=== PATIENT | female | born 1950 | race Caucasian/White ===

== ENCOUNTER 2016-12-21 08:30 | Outpatient (CLI) | payer OTHER ==
[2016-12-21 14:47] LABS: HEMOGLOBIN A1C 1.16 g/dL
== END 2016-12-21 08:31 | disposition home or self-care (01) ==
LOC: LAB 08:30
PROVIDERS: ATTEND Physician Assistant Medical
DX: E11.9 Type 2 diabetes mellitus without complications (principal); Z79.899 Other long term (current) drug therapy
CPT/HCPCS: 82947; 83036

== ENCOUNTER 2017-05-07 08:00 | Outpatient (CLI) | payer OTHER ==
[2017-05-07 14:47] LABS: HB2 TOTAL 15.6 g/dL; HEMOGLOBIN A1C 0.97 g/dL; HEMOGLOBIN A1C % 7.8 % (4.6-6.2)
== END 2017-05-07 08:01 | disposition home or self-care (01) ==
LOC: LAB.R 08:00
PROVIDERS: ATTEND Physician Assistant Medical
DX: E11.9 Type 2 diabetes mellitus without complications (principal); Z79.899 Other long term (current) drug therapy
CPT/HCPCS: 82947; 83036

== ENCOUNTER 2017-08-01 08:00 | Outpatient (CLI) | payer MEDICARE, OTHER ==
[2017-08-01 13:37] LABS: BASOPHILS # (AUTO) 0.1 10^3/uL (0.0-0.1); BASOPHILS % (AUTO) 1.2 %; EOSINOPHILS # (AUTO) 0.2 10^3/uL (0.0-0.7); EOSINOPHILS % (AUTO) 5.3 %; HGB - HEMOGLOBIN 14.2 g/dL (12.0-16.0); LYMPHOCYTES # (AUTO) 1.9 10^3/uL (1.5-3.5); LYMPHOCYTES % (AUTO) 39.9 %; MEAN CORPUSCULAR HEMOGLOBIN 29.4 pg (27.0-31.0); MEAN CORPUSCULAR HGB CONC 33.5 g/dL (32.0-36.0); MEAN CORPUSCULAR VOLUME 87.6 fL (81.0-99.0); MEAN PLATELET VOLUME 9.2 fL (7.9-10.8); MONOCYTES # (AUTO) 0.7 10^3/uL (0.0-1.0); MONOCYTES % (AUTO) 14.4 %; NEUTROPHILS # (AUTO) 1.9 10^3/uL (1.5-6.6); NEUTROPHILS % (AUTO) 39.2 %; PLT - PLATELET COUNT 288 10^3/uL (130-450); RED BLOOD COUNT 4.83 10^6/uL (4.20-5.40); RED CELL DISTRIBUTION WIDTH 12.6 % (12.0-15.0); WHITE BLOOD COUNT 4.7 x10^3/uL (4.8-10.8)
[2017-08-01 13:57] LABS: HB2 TOTAL 15.4 g/dL; HEMOGLOBIN A1C 0.85 g/dL; HEMOGLOBIN A1C % 7.2 % (4.6-6.2)
[2017-08-01 13:58] LABS: ALBUMIN 3.5 g/dL (3.2-5.5); ALKALINE PHOSPHATASE 51 IU/L (42-121); ALT ALANINE AMINOTRANSFERASE 11 IU/L (10-60); AST ASPARTATE AMINOTRANSFERASE 13 IU/L (10-42); BILIRUBIN,TOTAL 0.5 mg/dL (0.2-1.0); BUN - BLOOD UREA NITROGEN 24 mg/dL (6-20); CALCIUM 9.4 mg/dL (8.5-10.3); CARBON DIOXIDE - CO2 27 mmol/L (21-32); CHLORIDE 100 mmol/L (101-111); CHOL/HDL RATIO 4.5 (<4.4); CHOLESTEROL 222 mg/dL; GFR - MDRD 56 (>89); GLUCOSE 141 mg/dL (70-100); HDL CHOLESTEROL 49 mg/dL; LDL CHOLESTEROL,CALCULATED 143 mg/dL; LDL/HDL RATIO 2.9 (<4.4); SODIUM 135 mmol/L (135-145); VLDL CHOLESTEROL 30 mg/dL
== END 2017-08-01 08:01 | disposition home or self-care (01) ==
LOC: LAB.R 08:00
PROVIDERS: ATTEND Physician Assistant Medical
DX: E55.9 Vitamin D deficiency, unspecified (principal); I10 Essential (primary) hypertension; E11.9 Type 2 diabetes mellitus without complications; E78.2 Mixed hyperlipidemia; Z79.899 Other long term (current) drug therapy
CPT/HCPCS: 80053; 80061; 82306; 83036; 83721; 84443; 85025

== ENCOUNTER 2018-01-02 14:08 | Emergency (ER) | payer MEDICARE ==
[2018-01-02] MEDS ORDERED: NITROGLYCERIN SL 0.4 MG TABLET SL STA (14:25)
[2018-01-02] MEDS ORDERED: ASPIRIN CHEW 81 MG TABLET PO STA (14:25)
[2018-01-02] MEDS ORDERED: HEPARIN 25000UNITS/500ML (D5W) 25,000 UNIT/500 ML BAG IV STA (14:25)
[2018-01-02] MEDS ORDERED: METOPROLOL 5 MG/5 ML VIAL IVP STA (14:26)
[2018-01-02 14:34] LABS: BASOPHILS # (AUTO) 0.1 10^3/uL (0.0-0.1); EOSINOPHILS % (AUTO) 0.6 %; HGB - HEMOGLOBIN 14.6 g/dL (12.0-16.0); LYMPHOCYTES # (AUTO) 1.9 10^3/uL (1.5-3.5); LYMPHOCYTES % (AUTO) 25.7 %; MEAN CORPUSCULAR HEMOGLOBIN 30.3 pg (27.0-31.0); MEAN CORPUSCULAR HGB CONC 34.5 g/dL (32.0-36.0); MEAN CORPUSCULAR VOLUME 87.9 fL (81.0-99.0); MONOCYTES # (AUTO) 1.4 10^3/uL (0.0-1.0); MONOCYTES % (AUTO) 18.4 %; NEUTROPHILS % (AUTO) 54.3 %; PLT - PLATELET COUNT 334 10^3/uL (130-450); RED BLOOD COUNT 4.81 10^6/uL (4.20-5.40); RED CELL DISTRIBUTION WIDTH 12.4 % (12.0-15.0); WHITE BLOOD COUNT 7.4 x10^3/uL (4.8-10.8)
--- NOTE | 2018-01-02 14:37 | ED Physician Documentation ---
History of Present Illness - Stated complaint Stated Complaint: CHEST PX - Chief complaint Chief Complaint: Cardiac - Additonal information Additional information: hx from pt 67 f pmhx HTN HLD DM to ED with chest pain since 10 pm last night right sided rad to right shoulder + soa + NV - diaphoresis no leg swelling or travel no known CAD Review of Systems Constitutional: denies: Fever, Chills, Sweats Cardiac: reports: Chest pain / pressure Respiratory: reports: Dyspnea. denies: Cough GI: reports: Nausea, Vomiting. 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: Tubal ligation HEENT: Tonsil/Adenoidectomy - Present Medications Home Medications: Ambulatory Orders Medication Instructions Recorded Confirmed Aspirin [Aspir 81] 81 mg PO DAILY 05/13/14 05/07/15 Cholecalciferol (Vitamin D3) 5,000 unit PO DAILY 05/13/14 05/07/15 [Vitamin D3] Metformin HCl 1,000 mg PO BIDWM 05/13/14 05/07/15 Glyburide 5 mg PO BIDWM 05/07/15 05/07/15 - Allergies Allergies/Adverse Reactions: Allergies Allergy/AdvReac Type Severity Reaction Status Date / Time JAN Inhibitors AdvReac cough Verified 05/13/14 08:59 - Social History Smoking Status: Former smoker PD ED PE NORMAL - Vitals Vital signs reviewed: Yes - General General: Alert and oriented X 3 - HEENT HEENT: Atraumatic - Neck Neck: Supple, no meningeal sign - Cardiac Cardiac: RRR - Respiratory Respiratory: No respiratory distress, Clear bilaterally - Abdomen Abdomen: Soft, Non tender - Derm Derm: Normal color - Extremities Extremities: No edema, No calf tenderness / cord - Neuro Neuro: Alert and oriented X 3 Results - Vitals Vitals: Vital Signs - 24 hr 01/02/18 01/02/18 14:15 14:39 Temperature 36.0 C L Heart Rate 98 85 Respiratory 15 24 Rate Blood Pressure 158/117 H 164/102 H O2 Saturation 95 97 Oxygen O2 Source Nasal cannula - EKG (time done) 1416 Rate: Rate (enter#) (97) Rhythm: NSR [place]: Normal Ischemia: ST elevation c/w ischemia (V2-V5, slight ET elev inf as well), Q waves (inf and ant) - Labs Labs: Laboratory Tests 01/02/18 01/02/18 01/02/18 14:28 14:28 14:28 WBC 7.4 RBC 4.81 Hgb 14.6 Hct 42.3 MCV 87.9 MCH 30.3 MCHC 34.5 RDW 12.4 Plt Count 334 MPV 9.0 Neut # (Auto) 4.0 Lymph # (Auto) 1.9 [place] # (Auto) 1.4 H Eos # (Auto) 0.0 Baso # (Auto) 0.1 Absolute Nucleated RBC 0.00 Nucleated RBC % 0.0 Sodium 135 Potassium 4.3 Chloride 98 L Carbon Dioxide 28 Anion Gap 9.0 BUN 20 Creatinine 1.0 Estimated GFR (MDRD) 55 L Glucose 235 H Calcium 9.4 Total Bilirubin 0.7 AST 118 H ALT 30 Alkaline Phosphatase 61 Troponin I 40.92 H* Total Protein 7.6 Albumin 3.6 Globulin 4.0 Albumin/Globulin Ratio 0.9 L Lipase 29 - Rads (name of study) CXR Radiology: EMP read indepedently (read off portable machine - airtic knob appears tight no cap or effusion, no pneumo or infiltrate) PD MEDICAL DECISION MAKING - ED course ED course: STEMI anteriro, perhaps inferior as well already with Q waves though but with ongoing ischemic sx gave asa heparin nitro BB stat transfer to [facility] per protocol explained all to pt and - Critical Care Time(min): 30 Time Includes: Direct patient care, Review records, Reassess patient, Document care, Coordinate care, Medical consult, Family consult for tx dec Data interpretation: See progress note - Sepsis Event Vital Signs: Vital Signs - 24 hr 01/02/18 01/02/18 14:15 14:39 Temperature 36.0 C L Heart Rate 98 85 Respiratory 15 24 Rate Blood Pressure 158/117 H 164/102 H O2 Saturation 95 97 Oxygen O2 Source Nasal cannula Departure - Departure Disposition: 02 Transfer Acute Care Hosp Clinical Impression: STEMI (ST elevation myocardial infarction) Discharge Date/Time: 01/02/18 14:45
[2018-01-02 14:40] VITALS: BP 164/102
[2018-01-02 14:52] LABS: ALBUMIN 3.6 g/dL (3.2-5.5); ALBUMIN/GLOBULIN RATIO 0.9 (1.0-2.2); BILIRUBIN,TOTAL 0.7 mg/dL (0.2-1.0); CALCIUM 9.4 mg/dL (8.5-10.3); TOTAL PROTEIN 7.6 g/dL (6.7-8.2)
--- NOTE | 2018-01-02 15:06 | XRAY Report ---
Reason: chest pain Procedure Date: 01/02/2018 Accession Number: [id number] / [id number] Procedure: XR - Chest 1 View X-Ray CPT Code: 71353 FULL RESULT: EXAM: CHEST RADIOGRAPHY EXAM DATE: 01/02/2018 02:40 PM. CLINICAL HISTORY: Chest pain. COMPARISON: CHEST 2 VIEW PA/LAT 06/03/2013 9:54 AM. TECHNIQUE: 1 view. FINDINGS: Lungs/Pleura: Lung volumes appear reduced with elevation of the right hemidiaphragm. No consolidative process or edema. Negative for pneumothorax. Mediastinum: Heart size within normal limits. Trachea midline. Other: None. IMPRESSION: Lower lung volumes. Otherwise unremarkable. RADIA
== END 2018-01-02 14:45 | disposition short-term general hospital (02) ==
LOC: ED 14:08
DX: I21.09 ST elevation (STEMI) myocardial infarction involving other coronary artery of anterior wall (principal); I10 Essential (primary) hypertension; E11.9 Type 2 diabetes mellitus without complications; Z79.82 Long term (current) use of aspirin; Z87.891 Personal history of nicotine dependence; Z79.84 Long term (current) use of oral hypoglycemic drugs
CPT/HCPCS: 36415; 71045; 80053; 83690; 84484; 85025; 93005; 96374; 96375; 96376; 99284; 99291; A9270

== ENCOUNTER 2018-01-02 14:51 | Outpatient (CLI) | payer MEDICARE | END 2018-01-02 14:52 | disposition short-term general hospital (02) | LOC: EMS 14:51 | PROVIDERS: ATTEND Surgery | DX: R07.9 Chest pain, unspecified (principal) | CPT/HCPCS: A0425; A0427 ==

== ENCOUNTER 2018-01-14 11:41 | Outpatient (CLI) | payer MEDICARE ==
[2018-01-14 12:08] LABS: BASOPHILS # (AUTO) 0.1 10^3/uL (0.0-0.1); BASOPHILS % (AUTO) 1.4 %; EOSINOPHILS # (AUTO) 0.2 10^3/uL (0.0-0.7); EOSINOPHILS % (AUTO) 3.9 %; HGB - HEMOGLOBIN 11.6 g/dL (12.0-16.0); LYMPHOCYTES # (AUTO) 1.4 10^3/uL (1.5-3.5); LYMPHOCYTES % (AUTO) 26.3 %; MEAN CORPUSCULAR HEMOGLOBIN 30.5 pg (27.0-31.0); MEAN CORPUSCULAR HGB CONC 34.2 g/dL (32.0-36.0); MEAN CORPUSCULAR VOLUME 89.3 fL (81.0-99.0); MEAN PLATELET VOLUME 8.6 fL (7.9-10.8); MONOCYTES # (AUTO) 0.9 10^3/uL (0.0-1.0); MONOCYTES % (AUTO) 17.5 %; NEUTROPHILS # (AUTO) 2.7 10^3/uL (1.5-6.6); NEUTROPHILS % (AUTO) 50.9 %; PLT - PLATELET COUNT 368 10^3/uL (130-450); RED BLOOD COUNT 3.79 10^6/uL (4.20-5.40); RED CELL DISTRIBUTION WIDTH 12.7 % (12.0-15.0); WHITE BLOOD COUNT 5.3 x10^3/uL (4.8-10.8)
[2018-01-14 12:25] LABS: ALBUMIN/GLOBULIN RATIO 0.8 (1.0-2.2); BILIRUBIN,TOTAL 0.6 mg/dL (0.2-1.0); TOTAL PROTEIN 6.8 g/dL (6.7-8.2)
[2018-01-14 12:47] LABS: CALCIUM 8.9 mg/dL (8.5-10.3)
== END 2018-01-14 11:42 | disposition home or self-care (01) ==
LOC: LAB 11:41
PROVIDERS: ATTEND Physician Assistant Medical
DX: I25.2 Old myocardial infarction (principal); I10 Essential (primary) hypertension; Z79.899 Other long term (current) drug therapy
CPT/HCPCS: 36415; 80053; 83880; 85025

== ENCOUNTER 2018-01-18 11:35 | Outpatient (CLI) | payer MEDICARE ==
--- NOTE | 2018-01-18 17:31 | XRAY Report ---
Reason: DYSPNEA, HX OF STEMI Procedure Date: 01/18/2018 Accession Number: [id number] / [id number] Procedure: XR - Chest 2 View X-Ray CPT Code: 17205 FULL RESULT: EXAM: CHEST RADIOGRAPHY EXAM DATE: 01/18/2018 11:45 AM. CLINICAL HISTORY: DYSPNEA, HX OF STEMI. COMPARISON: CHEST 1 VIEW 01/02/2018 2:30 PM. TECHNIQUE: 2 views. FINDINGS: Cardiac silhouette partially obscured. Heart size appears normal. Calcified plaques in the thoracic aorta. There is a moderate left pleural effusion. Small right pleural effusion. Mild interstitial edema. No definite pneumothorax. IMPRESSION: Moderate left and small right pleural effusions. No definite consolidation, although evaluation limited by pleural effusions. Mild interstitial edema. RADIA
== END 2018-01-18 11:36 | disposition home or self-care (01) ==
LOC: DI 11:35
PROVIDERS: ATTEND Physician Assistant Medical
DX: J90 Pleural effusion, not elsewhere classified (principal); R06.00 Dyspnea, unspecified; I25.2 Old myocardial infarction
CPT/HCPCS: 71046

== ENCOUNTER 2018-01-18 12:38 | Observation (INO) | payer MEDICARE ==
[2018-01-18 13:51] LABS: BASOPHILS # (AUTO) 0.1 10^3/uL (0.0-0.1); BASOPHILS % (AUTO) 1.3 %; EOSINOPHILS # (AUTO) 0.2 10^3/uL (0.0-0.7); EOSINOPHILS % (AUTO) 3.3 %; LYMPHOCYTES # (AUTO) 1.6 10^3/uL (1.5-3.5); LYMPHOCYTES % (AUTO) 28.4 %; MEAN CORPUSCULAR HGB CONC 33.6 g/dL (32.0-36.0); MEAN CORPUSCULAR VOLUME 89.2 fL (81.0-99.0); MEAN PLATELET VOLUME 9.7 fL (7.9-10.8); MONOCYTES # (AUTO) 0.7 10^3/uL (0.0-1.0); MONOCYTES % (AUTO) 12.3 %; NEUTROPHILS % (AUTO) 54.7 %; PLT - PLATELET COUNT 413 10^3/uL (130-450); RED BLOOD COUNT 4.35 10^6/uL (4.20-5.40); RED CELL DISTRIBUTION WIDTH 13.3 % (12.0-15.0); WHITE BLOOD COUNT 5.5 x10^3/uL (4.8-10.8)
[2018-01-18 13:59] LABS: ALBUMIN 3.2 g/dL (3.2-5.5); ALBUMIN/GLOBULIN RATIO 0.8 (1.0-2.2); BILIRUBIN,TOTAL 0.2 mg/dL (0.2-1.0); CALCIUM 9.4 mg/dL (8.5-10.3); CREATININE 1.2 mg/dL (0.4-1.0)
[2018-01-18 14:37] LABS: INR 3.9 (0.8-1.2); PT - PROTHROMBIN TIME 41.4 secs (9.9-12.6)
--- NOTE | 2018-01-18 17:05 | ED Physician Documentation ---
PD HPI DYSPNEA - Stated complaint Stated Complaint: CHF - Chief complaint Chief Complaint: Cardiac - History obtained from History obtained from: Patient - History of Present Illness Timing - onset: How many days ago (9) Timing - onset during: Exertion Timing - duration: Days (9) Timing - details: Gradual onset, Still present Pain level max: 0 Pain level now: 0 Inciting event(s): No: URI, Immobilization/travel Worsened by: Exertion, Laying flat Associated symptoms: Cough, Chest pain / discomfort, Bilateral edema. No: Fever, Hemoptysis, Palpitations, Diaphoresis Similar symptoms before: Has not had sx before Recently seen: Not recently seen - Additional information Additional information: Pt stated since she was discharged from [facility] last January 09 after her heart attack and stent insertion, she had been feeling short of breath with exertion and laying flat. This had progressively gotten worse that she sleeps upright on a reclining chair and with light exertion she feels short of breath. She stated her legs had gotten more swollen. When she's sitting up and resting she does not have shortness of breath nor chest pain. Pt states the hydraulic lift operator put her on coumadin because there's a clot in the apex of her heart. Review of Systems Ten Systems: 10 systems reviewed and negative Constitutional: denies: Fever, Chills, Myalgias, Fatigue Nose: denies: Rhinorrhea / runny nose, Congestion Throat: denies: Sore throat Cardiac: reports: Chest pain / pressure, Pedal edema. denies: Palpitations, Calf pain Respiratory: reports: Dyspnea, Cough. 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: Tubal ligation HEENT: Tonsil/Adenoidectomy - Present Medications Home Medications: Ambulatory Orders Medication Instructions Recorded Confirmed Aspirin [Aspir 81] 81 mg PO DAILY 05/13/14 01/18/18 RX: Metformin HCl 500 mg PO BIDWM 05/13/14 01/18/18 RX: Glyburide 5 mg PO BIDWM 05/07/15 01/18/18 Clopidogrel Bisulfate [Clopidogrel] 75 mg PO DAILY 01/18/18 01/18/18 Pantoprazole Sodium [Protonix] 40 mg PO QDAC 01/18/18 01/18/18 RX: Atorvastatin Calcium 40 mg PO QPM 01/18/18 01/18/18 RX: Betamethasone Valerate 1 applic TOP BID PRN 01/18/18 01/18/18 RX: Colchicine 0.6 mg PO DAILY 01/18/18 01/18/18 RX: Furosemide 20 mg PO DAILY 01/18/18 01/18/18 RX: Losartan Potassium 25 mg PO DAILY 01/18/18 01/18/18 RX: Metoprolol Tartrate 25 mg PO BID 01/18/18 01/18/18 RX: Warfarin Sodium 5 - 10 mg PO DAILY 01/18/18 01/18/18 - Allergies Allergies/Adverse Reactions: Allergies Allergy/AdvReac Type Severity Reaction Status Date / Time JAN Inhibitors AdvReac cough Verified 01/18/18 12:44 - Social History Does the pt smoke?: No Smoking Status: Never smoker Does the pt drink ETOH?: No Does the pt have substance abuse?: No - Immunizations Immunizations are current?: Yes PD ED PE NORMAL - Vitals Vital signs reviewed: Yes - General General: Alert and oriented X 3, No acute distress - HEENT HEENT: Moist mucous membranes - Neck Neck: Supple, no meningeal sign - Cardiac Cardiac: RRR, No murmur, Strong equal pulses - Respiratory Respiratory: No respiratory distress, Other (few scattered rales, mildly decreased breath sounds bilaterally) - Abdomen Abdomen: Normal bowel sounds, Soft, Non tender, Non distended - Derm Derm: Normal color, Warm and dry - Extremities Extremities: No deformity, Normal ROM s pain, Other (1+ pitting edema of BLE). No: No tenderness to palpate - Neuro Neuro: Alert and oriented X 3 - Psych Psych: Normal mood, Normal affect Results - Vitals Vitals: Vital Signs - 24 hr 01/18/18 01/18/18 12:45 12:59 Temperature 36.8 C 36.8 C Heart Rate 100 100 Respiratory 20 18 Rate Blood Pressure 145/82 H 145/82 H O2 Saturation 94 94 Oxygen O2 Source Room air - EKG (time done) 1248 Rate: Rate (enter#) (100) Rhythm: NSR [place]: Normal Intervals: Normal [place] QRS: Normal Ischemia: Non specific changes - Labs Labs: Laboratory Tests 01/18/18 01/18/18 01/18/18 13:00 13:00 13:00 WBC 5.5 RBC 4.35 Hgb 13.0 Hct 38.8 MCV 89.2 MCH 30.0 MCHC 33.6 RDW 13.3 Plt Count 413 MPV 9.7 Neut # (Auto) 3.0 Lymph # (Auto) 1.6 [place] # (Auto) 0.7 Eos # (Auto) 0.2 Baso # (Auto) 0.1 Absolute Nucleated RBC 0.00 Nucleated RBC % 0.1 PT INR Sodium 139 Potassium 4.2 Chloride 99 L Carbon Dioxide 27 Anion Gap 13.0 BUN 24 H Creatinine 1.2 H Estimated GFR (MDRD) 45 L Glucose 208 H Calcium 9.4 Total Bilirubin 0.2 AST 17 ALT 16 Alkaline Phosphatase 83 Troponin I 0.48 B-Natriuretic Peptide Total Protein 7.0 Albumin 3.2 Globulin 3.8 Albumin/Globulin Ratio 0.8 L 01/18/18 01/18/18 01/18/18 13:00 14:13 15:35 WBC RBC Hgb Hct MCV MCH MCHC RDW Plt Count MPV Neut # (Auto) Lymph # (Auto) [place] # (Auto) Eos # (Auto) Baso # (Auto) Absolute Nucleated RBC Nucleated RBC % PT 41.4 H INR 3.9 H Sodium Potassium Chloride Carbon Dioxide Anion Gap BUN Creatinine Estimated GFR (MDRD) Glucose Calcium Total Bilirubin AST ALT Alkaline Phosphatase Troponin I 0.49 B-Natriuretic Peptide 967 H Total Protein Albumin Globulin Albumin/Globulin Ratio PD MEDICAL DECISION MAKING - ED course Complexity details: re-evaluated patient (1513 Pt NAD. Sitting up at bedside. States feels better sitting up than laying down. Denies cp/sob when not moving. Informed of test results and agreed to admission. Also agreed to another troponin as requested by the hospitalist prior to accepting admission. 1701 Case discussed with hospitalist Dr Christopher Jackman including unchanged troponin. Will admit as obs for lasix treatment. Pt updated.), considered differential (CHF, PULMONARY EDEMA, ACS, P.E., PNA), d/w patient, d/w family Departure - Departure Disposition: 66 [facility] DC/Xfer Clinical Impression: Anticoagulated on Coumadin Congestive heart failure Qualifiers: Heart failure type: unspecified Heart failure chronicity: acute Qualified Code(s): I50.9 - Heart failure, unspecified Condition: Fair Discharge Date/Time: 01/18/18 17:25
[2018-01-18] MEDS ORDERED: ACETAMINOPHEN 325 MG TABLET PO PRN (17:27)
[2018-01-18] MEDS ORDERED: MORPHINE 2 MG/ML CARPUJECT IVP PRN (17:27)
[2018-01-18] MEDS ORDERED: PROCHLORPERAZINE 10 MG/2 ML VIAL IVP PRN (17:27)
[2018-01-18] MEDS ORDERED: ZOLPIDEM 5 MG TABLET PO PRN (17:27)
[2018-01-18] MEDS ORDERED: WARFARIN 5 MG TABLET PO SCH (18:00)
[2018-01-18] MEDS: FUROSEMIDE 40 MG/4 ML VIAL IVP SCH (18:23)
--- NOTE | 2018-01-18 20:14 | HISTORY & PHYSICAL EXAMINATION ---
DATE OF SERVICE: 01/18/2018 Physician: Shavon Jones MD HISTORY OF PRESENT ILLNESS: This is a 67-year-old white female with a history of diabetes; on oral agents only, hypertension, and hyperlipidemia. The patient states that she does morning glucoses and they normally run between 80 and 130. Her A1c in the past has been approximately 7.2. The patient presented to our emergency room about a week ago after having 1 full day of indigestion and pain in the right ribcage area that she thought was either indigestion or pain from right rotator cuff physical therapy overuse. She happened to be in the hospital because of her 's outpatient appointment that day, and decided to come to be seen for this. She was found to have a STEMI acute HI, troponin was [address] elevations and she was transferred to [facility]. She had an angiogram there that showed a subtotal occlusion of the LAD, which was stented. The other arteries showed minor disease in the left circumflex and an open RCA. Her LVEF was about 45% and she had an apical wall motion abnormality and an LV apical clot was seen that was 1.1 x 3 cm. She had renal insufficiency while at [facility] with creatinine increasing from 0.8 up to 1.6, then improved to 1.2. She had post-HI pericarditis and was discharged on colchicine. She was just discharged on 01/09/2018 and she has been compliant with all her new medications. She was on Lovenox bridging while Coumadin was being started. She has been getting home health with a visiting nurse. Over the last 3 days, she has developed leg edema and weakness, and severe orthopnea and requiring to sit up in a chair to sleep. She told her doctor about this and was sent for an outpatient chest x-ray this morning. The chest x-ray showed CHF and she was advised to come to the ER. She denies any indigestion-type angina, palpitations, lightheadedness or syncope. She was significantly dyspneic in the ER today, and advised further management with iv diuresis. She is being placed in Observation for this. PAST MEDICAL HISTORY: Diabetes, hypertension, recent anterior HI and hyperlipidemia. FAMILY HISTORY: Her mother had peripheral vascular disease and protein C deficiency, but of congestive heart failure at the age of 60. Father's side had no inherited diseases. She has no children. 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 She is a nonsmoker who quit in the . She drinks very rare beer, once a month, uses no illicit drugs. She is compliant with her medications. Since her HI, she admits that her , who is mostly the cook, does not stick to a low salt and low sugar preparation of food. REVIEW OF SYSTEMS: A comprehensive review of systems was performed and the pertinent positives are in the HPI, the rest are negative. ALLERGIES: JAN INHIBITORS. MEDICATIONS: 1. Colchicine 0.6 mg daily. 2. Baby aspirin daily. 3. Warfarin between 5 and 10 mg daily. 4. Losartan 25 mg daily. 5. Lasix 20 mg daily. 6. Protonix 40 mg daily. 7. Metoprolol tartrate 25 mg b.i.d. 8. Plavix 75 mg daily. 9. Lipitor 40 mg every night. 10. Metformin 500 mg b.i.d. 11. Glyburide 5 mg b.i.d. PHYSICAL EXAMINATION: GENERAL: White female who is in no distress, but she is sitting bolt upright. VITAL SIGNS: Blood pressure 145/82, pulse is 100 in sinus rhythm, afebrile, room air saturation 94%, respiratory rate 20. HEENT: Unremarkable. NECK: Without JVD in a vertical position. No carotid bruits. CHEST: Left basilar crackles up 1/2. The right has crackles only at the base. HEART: Sounds are normal. No audible murmur. Very distant heart sounds. There is no rub. ABDOMEN: Soft, nontender. No organomegaly. EXTREMITIES: Show 3+ edema to the knees. No clubbing or cyanosis. She has very taut skin over the shins. NEUROLOGIC: Intact. LABORATORY DATA: Troponin is 0.48 and a repeat troponin 2 hours later was 0.49, normal electrolytes, BUN is 24, creatinine 1.2, glucose 208. BNP 967. Normal liver tests. INR is 3.9. Normal CBC. Urinalysis was not done. IMAGING DATA: Chest x-ray from earlier, before the ER visit showed CHF/pulmonary edema. DIAGNOSTIC DATA: EKG: Sinus tachycardia at a rate of 100, left atrial and probably right atrial enlargement, low voltage throughout the precordium, QS waves V1 through V6, flat inferior T waves. She had ST elevations in leads V2 through V4 consistent with an aneurysm. There is no old EKG here for comparison. IMPRESSION/DIAGNOSES: 1. Pulmonary edema. 2. 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 3. Left ventricular thrombus. 4. Diabetes mellitus. 5. Elevated INR (excessive). PLAN: Place the patient in Observation on telemetry. Begin IV diuresis, follow her I's and O's, daily weight. Continue with her beta yasmine post-HI, and increase the dose since blood pressure will allow it and it will help the tachycardia and to try to achieve the recommended metoprolol dose for heart failure, which is 200 mg daily total, her dose is too low currently. Change to Succinate, long acting Metoprolol. Continue with her ARB, but watch her creatinine. If needed, she may need transition to the substitute, which would be hydralazine with nitrates. Continue with her statin and check lipid panel. Continue with her Plavix, which is planned for 1 month post drug-eluting stent placement and continue with her aspirin daily lifelong. Continue with Coumadin, but hold a dose now, to maintain INR between 2 and 3. Follow INR daily while here. Check for protein C deficiency, which may give her a hypercoagulable state, as she may have an inherited the deficiency from her mother. Obtain an Echo to reestablish LV and RV contractility and the size of the clot, and for any pericarditis, which is still concerning since she has low voltage on her EKG. Follow her chest x-ray. DVT PROPHYLAXIS: Full dose anticoagulation, which she has already achieved. CODE STATUS: FULL CODE (this was reviewed in detail with the patient today). ATTESTATION: The patient is expected to be discharged or transferred to another facility within 96 hours: Yes. TD: 01/18/2018 19:12 ADIN
[2018-01-18] MEDS: FAMOTIDINE 20 MG TABLET PO SCH (21:29)
[2018-01-18] MEDS: ATORVASTATIN 40 MG TABLET PO SCH (21:29)
[2018-01-18] MEDS: METOPROLOL TARTRATE 25 MG TABLET PO SCH (21:30)
[2018-01-18] MEDS: INSULIN ASPART 300 UNIT/3 ML PEN SUBQ SCH (21:33)
[2018-01-19] MEDS: SODIUM CHLORIDE FLUSH 0.9% 10 ML SYRINGE IVP SCH ×3 (00:22→16:27)
[2018-01-19] MEDS: NYSTATIN POWDER 15 GM TOP SCH ×3 (04:59→20:38)
[2018-01-19 05:18] LABS: CALCIUM 9.2 mg/dL (8.5-10.3)
[2018-01-19 05:21] LABS: PT - PROTHROMBIN TIME 43.3 secs (9.9-12.6)
[2018-01-19 05:26] LABS: CHOL/HDL RATIO 4.2 (<4.4); CHOLESTEROL 156 mg/dL; HDL CHOLESTEROL 37 mg/dL; LDL CHOLESTEROL,CALCULATED 85 mg/dL; LDL/HDL RATIO 2.3 (<4.4); VLDL CHOLESTEROL 34 mg/dL
[2018-01-19] MEDS: SODIUM CHLORIDE FLUSH 0.9% 10 ML SYRINGE IVP PRN ×2 (06:09→06:23)
[2018-01-19] MEDS: FUROSEMIDE 40 MG/4 ML VIAL IVP SCH ×2 (06:09→13:40)
[2018-01-19 06:19] LABS: HB2 TOTAL 13.2 g/dL; HEMOGLOBIN A1C 0.84 g/dL
[2018-01-19] MEDS ORDERED: glyBURIDE 2.5 MG TABLET PO SCH (08:00)
[2018-01-19] MEDS: glyBURIDE 2.5 MG TABLET PO SCH (08:27)
[2018-01-19] MEDS: METOPROLOL TARTRATE 25 MG TABLET PO SCH ×2 (08:28→20:35)
[2018-01-19] MEDS: COLCHICINE 0.6 MG TABLET PO SCH (08:30)
[2018-01-19] MEDS: FAMOTIDINE 20 MG TABLET PO SCH ×2 (08:30→20:35)
[2018-01-19] MEDS: ASPIRIN EC 81 MG TABLET PO SCH (08:30)
[2018-01-19] MEDS: LOSARTAN 50 MG TABLET PO SCH (08:30)
[2018-01-19] MEDS: CLOPIDOGREL 75 MG TABLET PO SCH (08:30)
[2018-01-19] MEDS: POLYETHYLENE GLYCOL 3350 17 GM PACKET PO SCH (08:31)
[2018-01-19] MEDS: INSULIN ASPART 300 UNIT/3 ML PEN SUBQ SCH ×4 (10:13→20:28)
--- NOTE | 2018-01-19 10:59 | XRAY Report ---
Reason: CHF Procedure Date: 01/19/2018 Accession Number: [id number] / [id number] Procedure: XR - Chest 1 View X-Ray CPT Code: 26967 FULL RESULT: EXAM: CHEST RADIOGRAPHY EXAM DATE: 01/19/2018 09:32 AM. CLINICAL HISTORY: CHF. Shortness of breath. COMPARISON: Chest 2 view 01/18/2018 11:39 AM. TECHNIQUE: 1 view. FINDINGS: Lungs/Pleura: Moderate left pleural effusion and small right pleural effusion appear similar to prior. Left basilar pulmonary opacity is unchanged. There is stable mild pulmonary vascular congestion and interstitial prominence. No pneumothorax. Lung volumes are low. Mediastinum: Within exam limitations, the cardiomediastinal contour is normal. There is mild atherosclerotic calcification of the aortic arch. Other: No acute osseous abnormality. IMPRESSION: 1. Moderate left and small right pleural effusions, similar to prior. 2. Left basilar atelectasis or infiltrate is unchanged. 3. Stable mild pulmonary vascular congestion and interstitial edema. RADIA
[2018-01-19] MEDS ORDERED: WARFARIN 5 MG TABLET PO SCH (13:00)
--- NOTE | 2018-01-19 15:14 | PROVIDER PROGRESS NOTE ---
Assessment/Plan - Problem List (1) Acute on chronic systolic heart failure, NYHA class 3 Assessment/Plan: Troponins were essentially flat, indicating no acute NSTEMI Echo showed an apical aneurysm, basal cleaning are hyperdynamic, LVEF 40%. She has only had a 0.5 kg weight loss, but is 2L neg in fluid balance. Continue the higher dose of B-yasmine, Losartan, Lasix and will add Spironolactone. Since she is still orthopneic, she is not ready to be DCh home yet. The pt agrees. (2) Recent myocardial infarction of anterior wall Assessment/Plan: The EKG was suggestive of aneurysm and indeed there is a large aneyrysm. I updated the pt and later her regarding this. Continue post-MA B-yasmine, statin to achieve LDL <70, ASA and Plavix. She is planning on starting cardiac rehab here, at the [facility], after DCh. (3) LV (left ventricular) mural thrombus following MA Assessment/Plan: The clot was measured at 1 x 1 cm approx, which is already smaller than 3 x 1 cm seen at [facility] 2 weeks ago. Continue Coumadin, achieving INR of 2.0 - 3.0 (Coumadin on hold yesterday and today). (4) Diabetes type 2, uncontrolled Qualifiers: Glycemic state: with hyperglycemia Qualified Code(s): E11.65 - Type 2 diabetes mellitus with hyperglycemia Assessment/Plan: A1c was 8.0, indicating moderately good control. Continue carb-controlled diet, fingersticks and ss Insulin. - Current Meds Current Meds: Current Medications Generic Name Dose Route Start Last Admin Trade Name Curtis PRN Reason Stop Dose Admin Aspirin 81 mg 01/19/18 09:00 01/19/18 08:30 Ecotrin PO 81 mg DAILY SARINA Administration Atorvastatin Calcium 40 mg 01/18/18 21:00 01/18/18 21:29 Lipitor PO 40 mg QPM SARINA Administration Clopidogrel Bisulfate 75 mg 01/19/18 09:00 01/19/18 08:30 Plavix PO 75 mg DAILY SARINA Administration Colchicine 0.6 mg 01/19/18 09:00 01/19/18 08:30 Colcrys PO 0.6 mg DAILY SARINA Administration Famotidine 20 mg 01/18/18 21:00 01/19/18 08:30 Pepcid PO 20 mg BID SARINA Administration Furosemide 40 mg 01/18/18 18:00 01/19/18 13:40 Lasix Inj 40 Mg Vial IVP 40 mg BIDDIURETIC SARINA Administration Glyburide 5 mg 01/19/18 08:23 01/19/18 08:27 Diabeta PO 5 mg BIDWM SARINA Administration Insulin Aspart 1 - 5 unit 01/18/18 21:00 01/19/18 11:51 Novolog SUBQ 2 unit 0800,1200,1700,2100 SARINA Administration Protocol Losartan Potassium 25 mg 01/19/18 09:00 01/19/18 08:30 Cozaar PO 25 mg DAILY SARINA Administration Metoprolol Tartrate 50 mg 01/18/18 21:00 01/19/18 08:28 Lopressor PO 50 mg BID SARINA Administration Nystatin 1 applic 01/19/18 02:00 01/19/18 10:13 Nystop TOP 1 applic BID SARINA Administration Polyethylene Glycol 17 gm 01/19/18 09:00 01/19/18 08:31 Miralax PO Not Given DAILY SARINA Sodium Chloride 10 ml 01/18/18 17:27 01/19/18 06:23 Normal Saline Flush 0.9% IVP 10 ml PRN PRN Administration NEEDED PER PROVIDER ORDERS Sodium Chloride 10 ml 01/19/18 01:00 01/19/18 10:13 Normal Saline Flush 0.9% IVP 10 ml 0100,0900,1700 SARINA Administration - Lab Result Fish Bone Diagrams: 01/18/18 13:00 01/19/18 04:30 - Additional Planning My Orders: My Active Orders 01/18/18 17:27 Activity Orders [RC] Routine IO [RC] IOSHIFT Initiate Bowel Care Protocol [RC] .protocol Initiate Line Care Protocol [RC] .protocol Initiate Line Care Protocol [RC] QSHIFT Initiate Personal Care Protoco [RC] .protocol Oxygen Therapy [RC] Routine Vital Signs [RC] Q4HR Acetaminophen [Tylenol] 650 mg PO Q4HR PRN Morphine Inj (Carpuject) [Morphine (Carpuject)] 2 mg IVP Q4HR PRN Prochlorperazine Inj [Compazine Inj] 10 mg IVP Q6HR PRN Sodium Chloride Flush 0.9% [Normal Saline Flush 0.9%] 10 ml IVP PRN PRN Zolpidem [Ambien] 5 mg PO QPM PRN Code Status [OTHERS] Routine Condition of Patient [OTHERS] Routine DVT Prophylaxis [OTHERS] Routine 01/18/18 17:29 Daily Weight [RC] 0600 IV Insert [RC] .ONCE 01/18/18 17:33 Blood Glucose Checks - Eating [RC] 0800,1200,1700,2100 Initiate Hypoglycemia Protocol [RC] .protocol 01/18/18 17:36 Echo Transthoracic Complete [ECHO] Routine 01/18/18 17:37 Elevate Extremity [RC] prn Miscellaenous Nursing Order [RC] QSHIFT 01/18/18 17:38 Miscellaenous Nursing Order [RC] PRN 01/18/18 18:00 FUROSEMIDE INJ 40mg VIAL [LASIX INJ 40 mg VIAL] 40 mg IVP BIDDIURETIC 01/18/18 21:00 Atorvastatin [Lipitor] 40 mg PO QPM Famotidine [Pepcid] 20 mg PO BID Insulin Aspart [NovoLOG] 1 - 5 unit SUBQ 0800,1200,1700,2100 Metoprolol Tartrate [Lopressor] 50 mg PO BID 01/18/18 23:30 PROTEIN C ACTIVITY [REFLAB] Routine 01/18/18 Dinner Carb-controlled Diet [DIET] 01/19/18 01:00 Sodium Chloride Flush 0.9% [Normal Saline Flush 0.9%] 10 ml IVP 0100,0900,1700 01/19/18 08:23 glyBURIDE [Diabeta] 5 mg PO BIDWM 01/19/18 09:00 Aspirin EC [Ecotrin] 81 mg PO DAILY Clopidogrel [Plavix] 75 mg PO DAILY Colchicine [Colcrys] 0.6 mg PO DAILY Losartan [Cozaar] 25 mg PO DAILY Polyethylene Glycol 3350 [Miralax] 17 gm PO DAILY 01/20/18 05:00 BMP - BASIC METABOLIC PANEL [CHEM] DAILYLAB BNP - B-NATRIURETIC PEPTIDE [IAI] DAILYLAB PT WITH INR [COAG] DAILYLAB 01/20/18 13:00 Warfarin [Coumadin] 5 mg PO 1300 01/21/18 05:00 BMP - BASIC METABOLIC PANEL [CHEM] DAILYLAB BNP - B-NATRIURETIC PEPTIDE [IAI] DAILYLAB PT WITH INR [COAG] DAILYLAB Subjective - Subjective Patient Reports: Feeling Better, Other (Legs much less sswollen but still has orthopnea) Objective Vital Signs: Vital Signs - 24 hr 01/18/18 01/18/18 01/18/18 17:15 18:00 20:46 Temperature 36.6 C 36.6 C Heart Rate 97 94 Heart Rate [ 94 Brachial] Respiratory 20 18 18 Rate Blood Pressure 126/80 Blood Pressure 137/78 H [Right Brachial artery] O2 Saturation 97 94 94 01/18/18 01/19/18 01/19/18 21:30 00:00 04:44 Temperature 36.7 C 36.6 C Heart Rate Heart Rate [ 81 86 Brachial] Respiratory 16 17 Rate Blood Pressure 132/78 H Blood Pressure 110/80 128/67 [Right Brachial artery] O2 Saturation 94 94 01/19/18 01/19/18 01/19/18 08:08 08:28 12:04 Temperature 36.6 C 36.6 C Heart Rate Heart Rate [ 92 81 Brachial] Respiratory 20 18 Rate Blood Pressure 144/77 H Blood Pressure 144/77 H 131/72 H [Right Brachial artery] O2 Saturation 94 96 Oxygen O2 Source Nasal cannula I&O (Last 24 Hrs): Intake and Output Totals x24h 01/17/18 01/18/18 01/19/18 23:59 23:59 23:59 Intake Total 250 1530 Output Total 1270 3375 Balance -1020 -1845 General: Alert, Oriented x3 HEENT: Mucous membr. moist/pink Neck: No JVD Neuro: Non Focal Cardiovascular: Regular rate, No murmurs Respiratory: No respiratory distress, Other (Bibasilar rales, L>R) Abdomen: Soft, No tenderness Extremities: Other (Trace pedal and pre-tibial edema) - Results Results: Laboratory Results WBC 5.5 x10^3/uL (4.8-10.8) 01/18/18 13:00 RBC 4.35 10^6/uL (4.20-5.40) 01/18/18 13:00 Hgb 13.0 g/dL (12.0-16.0) 01/18/18 13:00 Hct 38.8 % (37.0-47.0) 01/18/18 13:00 MCV 89.2 fL (81.0-99.0) 01/18/18 13:00 MCH 30.0 pg (27.0-31.0) 01/18/18 13:00 MCHC 33.6 g/dL (32.0-36.0) 01/18/18 13:00 RDW 13.3 % (12.0-15.0) 01/18/18 13:00 Plt Count 413 10^3/uL (130-450) 01/18/18 13:00 MPV 9.7 fL (7.9-10.8) 01/18/18 13:00 Neut # (Auto) 3.0 10^3/uL (1.5-6.6) 01/18/18 13:00 Lymph # (Auto) 1.6 10^3/uL (1.5-3.5) 01/18/18 13:00 [place] # (Auto) 0.7 10^3/uL (0.0-1.0) 01/18/18 13:00 Eos # (Auto) 0.2 10^3/uL (0.0-0.7) 01/18/18 13:00 Baso # (Auto) 0.1 10^3/uL (0.0-0.1) 01/18/18 13:00 Absolute Nucleated RBC 0.00 x10^3/uL 01/18/18 13:00 Nucleated RBC % 0.1 /100WBC 01/18/18 13:00 PT 43.3 secs (9.9-12.6) H 01/19/18 04:30 INR 4.0 (0.8-1.2) H 01/19/18 04:30 Sodium 140 mmol/L (135-145) 01/19/18 04:30 Potassium 3.9 mmol/L (3.5-5.0) 01/19/18 04:30 Chloride 99 mmol/L (101-111) L 01/19/18 04:30 Carbon Dioxide 30 mmol/L (21-32) 01/19/18 04:30 Anion Gap 11.0 (6-13) 01/19/18 04:30 BUN 23 mg/dL (6-20) H 01/19/18 04:30 Creatinine 1.0 mg/dL (0.4-1.0) 01/19/18 04:30 Estimated GFR (MDRD) 55 (>89) L 01/19/18 04:30 Glucose 157 mg/dL (70-100) H 01/19/18 04:30 POC Whole Bld Glucose 187 mg/dL (70 - 100) H 01/19/18 11:11 Glycated Hemoglobin 8.0 % (4.6-6.2) H 01/19/18 04:30 Estim Average Glucose 183 (70-100) H 01/19/18 04:30 Calcium 9.2 mg/dL (8.5-10.3) 01/19/18 04:30 Total Bilirubin 0.2 mg/dL (0.2-1.0) 01/18/18 13:00 AST 17 IU/L (10-42) 01/18/18 13:00 ALT 16 IU/L (10-60) 01/18/18 13:00 Alkaline Phosphatase 83 IU/L (42-121) 01/18/18 13:00 Troponin I 0.53 ng/mL (<0.49) H* 01/19/18 04:30 B-Natriuretic Peptide 1457 pg/mL (5-100) H 01/19/18 04:30 Total Protein 7.0 g/dL (6.7-8.2) 01/18/18 13:00 Albumin 3.2 g/dL (3.2-5.5) 01/18/18 13:00 Globulin 3.8 g/dL (2.1-4.2) 01/18/18 13:00 Albumin/Globulin Ratio 0.8 (1.0-2.2) L 01/18/18 13:00 Triglycerides 170 mg/dL (-149) H 01/19/18 04:30 Cholesterol 156 mg/dL (-199) 01/19/18 04:30 LDL Cholesterol, Calc 85 mg/dL (-129) 01/19/18 04:30 VLDL Cholesterol 34 mg/dL 01/19/18 04:30 HDL Cholesterol 37 mg/dL (60-) L 01/19/18 04:30 LDL/HDL Ratio 2.3 (<4.4) 01/19/18 04:30 Cholesterol/HDL Ratio 4.2 (<4.4) 01/19/18 04:30
[2018-01-19] MEDS: SPIRONOLACTONE 25 MG TABLET PO SCH (16:27)
[2018-01-19] MEDS: ATORVASTATIN 40 MG TABLET PO SCH (20:35)
[2018-01-20] MEDS: SODIUM CHLORIDE FLUSH 0.9% 10 ML SYRINGE IVP SCH ×2 (00:41→09:56)
[2018-01-20 05:13] LABS: CALCIUM 9.3 mg/dL (8.5-10.3); CREATININE 1.1 mg/dL (0.4-1.0)
[2018-01-20] MEDS: SODIUM CHLORIDE FLUSH 0.9% 10 ML SYRINGE IVP PRN (06:34)
[2018-01-20] MEDS: FUROSEMIDE 40 MG/4 ML VIAL IVP SCH (06:34)
[2018-01-20 06:55] LABS: INR 2.4 (0.8-1.2); PT - PROTHROMBIN TIME 26.7 secs (9.9-12.6)
[2018-01-20] MEDS ORDERED: FUROSEMIDE 40 MG TABLET PO SCH (07:00)
[2018-01-20 08:44] VITALS: BP 115/69
[2018-01-20] MEDS ORDERED: METOPROLOL SUCCINATE 50 MG TABLET PO SCH (09:00)
--- NOTE | 2018-01-20 09:05 | Discharge Plan ---
Discharge Plan Disposition: 01 Home, Self Care Condition: Stable Prescriptions: Furosemide [Lasix] 40 mg PO BIDDIURETIC #120 tablet Metoprolol Succinate [Toprol Xl] 50 mg PO BID #60 tablet Spironolactone [Aldactone] 25 mg PO DAILY #30 tablet Diet: Diabetic Activity Restrictions: Activity as Tolerated Shower Restrictions: No Driving Restrictions: No Instruction Topics: Heart Failure Meds Control, Heart Failure Warning Signs, Heart Failure Tracking Weight, Heart Failure Being Active, Heart Failure Coping, Heart Failure Diet Changes Additional Instructions or Follow Up instructions: You were here for treating fluid retention secondary to congestive heart failure. You are being discharged with somewhat different medications to manage that. Stop the Metoprolol Tartrate (which is a short acting medication) and instead a new prescription has been ordered for you of Metoprolol Succinate (it is slow- release and at a higher dose). Start taking the new Spironolactone, which helps prevent heart failure. Take the Lasix at a higher dose (40 mg twice a day) for 5 days more, then go back to one tablet of 20 mg once a day. A prescription for more tablets has been ordered. The Coumadin dose can now be 5 mg every day. The INR blood tests should still continue to be done, with the same target of 2 - 3. All your other medications should remain the same: aspirin, Clopidogrel, Colcrys, Insulin, Metformin, Glyburide, Atorvastatin, the stomach pill. You should weigh yourself DAILY and if there is an increase of 5 lbs or more in a day, you should take 2 tablets of Lasix that day in the morning.. Please be on a stricter low sodium diet, to prevent water retention. Also, follow a low fat and diabetic diet. See your PCP and [employer] as previously planned. If you have new or worsening symptoms, come to the ER. [facility]-Up Care: [facility], [facility], [facility] - RN, Home [facility] - PT No Smoking: If you smoke, Please STOP! Call for help. Follow-up with: Beka Cuenca MD [Primary Care Provider] -
[2018-01-20] MEDS: glyBURIDE 2.5 MG TABLET PO SCH (09:55)
[2018-01-20] MEDS: CLOPIDOGREL 75 MG TABLET PO SCH (09:56)
[2018-01-20] MEDS: INSULIN ASPART 300 UNIT/3 ML PEN SUBQ SCH (09:56)
[2018-01-20] MEDS: ASPIRIN EC 81 MG TABLET PO SCH (09:56)
[2018-01-20] MEDS: POLYETHYLENE GLYCOL 3350 17 GM PACKET PO SCH (09:56)
[2018-01-20] MEDS: COLCHICINE 0.6 MG TABLET PO SCH (09:56)
[2018-01-20] MEDS: SPIRONOLACTONE 25 MG TABLET PO SCH (09:56)
[2018-01-20] MEDS: NYSTATIN POWDER 15 GM TOP SCH (09:56)
[2018-01-20] MEDS: FAMOTIDINE 20 MG TABLET PO SCH (09:56)
[2018-01-20] MEDS: LOSARTAN 50 MG TABLET PO SCH (09:56)
[2018-01-20] MEDS ORDERED: WARFARIN 5 MG TABLET PO SCH (13:00)
[2018-01-20] MEDS ORDERED: FUROSEMIDE 20 MG TABLET PO SCH (14:00)
--- NOTE | 2018-01-30 14:42 | DISCHARGE SUMMARY ---
Physician: Shavon Jones MD DATE OF ADMISSION: 01/18/2018 DATE OF DISCHARGE: 01/20/2018 HISTORY OF PRESENT ILLNESS: This is a 67-year-old, white female with a history of diabetes, hypertension, and hyperlipidemia, who had suffered a STEMI acute [place] with a troponin of 40 several weeks ago after presenting with nearly 1 day of symptoms, which were indigestion and right shoulder and scapular pain. She was transferred to [facility] and had an angiogram that showed a subtotal occlusion of the LAD, which was stented. The other arteries showed minor disease in the left circumflex and an open RCA artery. Her LVEF was approximately 45%. She had an apical akinetic zone and an LV apical clot and was started on Coumadin. She had post-[place] pericarditis and was discharged with colchicine. She was home getting Home Health services for approximately a week and was developing worsening dyspnea, leg edema, then severe orthopnea and presented with these complaints. She was admitted for a CHF exacerbation. HOSPITAL COURSE AND DISCHARGE DIAGNOSES 1. Acute on chronic systolic heart failure, [place] Heart Association class III. The patient had pulmonary edema on chest x-ray. She was treated with IV diuretics. She had improvement in leg edema and her orthopnea. She was discharged home on a higher dose of Lasix to take for 5 days and then resume her daily lower Lasix dose. Her beta yasmine doses were also increased for post-[place] management, and she was started on new Spironolactone. 2. Recent anterior myocardial infarction. The patient was kept on her aspirin, Plavix, beta blockers, losartan, and statin. Repeat troponin done here showed no evidence of acute ischemia as the cause of the CHF occurrence. 3. Left ventricular (LV) thrombus, following myocardial infarction ([place]). The patient had a large thrombus reported on the angiogram done at [facility], which measured 3 x 1 cm. An Echo was done here that showed left ventricular ejection fraction (LVEF) of 40%, apical aneurysm, and the apical clot measured 1 x 1 cm. The patient was on Coumadin while here. Her INR values were therapeutic. She was discharged on Coumadin with plans for continued outpatient INR management. 4. Diabetes, type 2, uncontrolled. The patient was on Insulin, Glyburide and Metformin. She was kept on her carb-controlled diet and had sliding scale Insulin coverage while here. Her admission HbA1c was 8.0, indicating fair control. The patient had review of a proper diet and was motivated to follow a low-salt, diabetic, low-cholesterol diet. 5. History of hypertension. The patient had good control while here; she was kept on her medicines, but also the beta yasmine dose was increased, and Spironolactone was started. 6. Hypercholesterolemia. The patient was kept on her statin medication while here. A fasting lipid level was done that showed total cholesterol 156, LDL 85, triglycerides 170, and HDL 37. LABORATORIES AND IMAGING: Reviewed and summarized above. ALLERGIES: JAN INHIBITORS. MEDICATIONS AT DISCHARGE 1. Baby aspirin daily. 2. Lipitor 40 mg q. p.m. 3. Plavix 75 mg daily. 4. Colchicine 0.6 mg daily. 5. Glyburide 5 mg b.i.d. 6. Losartan 25 mg daily. 7. Metformin 500 mg b.i.d. 8. Protonix 40 mg daily. 9. Lasix 40 mg b.i.d. for 5 days, then decrease to 20 mg daily. 10. Toprol-XL increased dose to 50 mg b.i.d. 11. Spironolactone 25 mg daily. 12. Coumadin 5 mg daily. CONDITION AT DISCHARGE: Stable. PHYSICAL EXAMINATION VITAL SIGNS: Blood pressure 115/69. Pulse of 82, sinus rhythm. Afebrile. Room air saturation 92%. HEENT: Unremarkable. NECK: Without JVD or carotid bruits. CHEST: Had fine left basilar crackles. No wheezes. HEART: Sounds normal. ABDOMEN: Soft and benign. EXTREMITIES: Trace to 1+ pedal and ankle edema. NEUROLOGIC: Intact. FOLLOWUP: Follow up with PCP and Cardiology, as she had already arranged. CODE STATUS: FULL CODE. Time required to complete this entire discharge, chart review, patient education, prescription orders, dictation: 60 minutes. cc: Beka Cuenca MD TD: 01/30/2018 14:06 MTDD
== END 2018-01-20 13:22 | disposition home or self-care (01) ==
LOC: ED 12:38 → MS2 17:09
PROVIDERS: ADMIT Internal Medicine; ATTEND Internal Medicine
DX: I11.0 Hypertensive heart disease with heart failure (principal); I50.23 Acute on chronic systolic (congestive) heart failure; I21.09 ST elevation (STEMI) myocardial infarction involving other coronary artery of anterior wall; I23.6 Thrombosis of atrium, auricular appendage, and ventricle as current complications following acute myocardial infarction; E11.65 Type 2 diabetes mellitus with hyperglycemia; E78.5 Hyperlipidemia, unspecified; R00.0 Tachycardia, unspecified; I25.10 Atherosclerotic heart disease of native coronary artery without angina pectoris; Z95.5 Presence of coronary angioplasty implant and graft; Z79.01 Long term (current) use of anticoagulants; Z79.02 Long term (current) use of antithrombotics/antiplatelets; Z79.82 Long term (current) use of aspirin; Z79.899 Other long term (current) drug therapy; Z87.891 Personal history of nicotine dependence; I25.2 Old myocardial infarction; J90 Pleural effusion, not elsewhere classified; R06.00 Dyspnea, unspecified
CPT/HCPCS: 36415; 71045; 71046; 80048; 80053; 80061; 83036; 83735; 83880; 84484; 85025; 85303; 85610; 93005; 93306; 94761; 96374; 96376; 99283; 99285; A9270; G0378; 83721

== ENCOUNTER 2018-01-30 11:00 | Outpatient (CLI) | payer MEDICARE ==
[2018-01-30 16:43] LABS: CALCIUM 9.3 mg/dL (8.5-10.3); CREATININE 1.5 mg/dL (0.4-1.0)
== END 2018-01-30 11:01 | disposition home or self-care (01) ==
LOC: LAB.R 11:00
PROVIDERS: ATTEND Physician Assistant
DX: I25.10 Atherosclerotic heart disease of native coronary artery without angina pectoris (principal)
CPT/HCPCS: 80048

== ENCOUNTER 2018-02-08 11:21 | Outpatient (CLI) | payer MEDICARE ==
[2018-02-08 15:11] LABS: CALCIUM 9.6 mg/dL (8.5-10.3); CREATININE 1.4 mg/dL (0.4-1.0)
== END 2018-02-08 11:22 | disposition home or self-care (01) ==
LOC: LAB.R 11:21
PROVIDERS: ATTEND Physician Assistant
DX: I25.10 Atherosclerotic heart disease of native coronary artery without angina pectoris (principal)
CPT/HCPCS: 80048; 83880

== ENCOUNTER 2018-02-12 13:17 | Outpatient (CLI) | payer MEDICARE | END 2018-02-12 13:18 | disposition home or self-care (01) | LOC: LAB 13:17 | PROVIDERS: ATTEND Physician Assistant Medical | DX: I25.2 Old myocardial infarction (principal); Z79.01 Long term (current) use of anticoagulants | CPT/HCPCS: 85610 ==

== ENCOUNTER 2018-02-20 11:54 | Outpatient (CLI) | payer MEDICARE ==
[2018-02-20 12:43] LABS: PT - PROTHROMBIN TIME 22.6 secs (9.9-12.6)
== END 2018-02-20 11:55 | disposition home or self-care (01) ==
LOC: LAB 11:54
PROVIDERS: ATTEND Physician Assistant Medical
DX: I25.2 Old myocardial infarction (principal); Z79.01 Long term (current) use of anticoagulants
CPT/HCPCS: 36415; 85610

== ENCOUNTER 2018-02-26 09:52 | Outpatient (CLI) | payer MEDICARE | END 2018-02-26 09:53 | disposition home or self-care (01) | LOC: LAB 09:52 | PROVIDERS: ATTEND Physician Assistant Medical | DX: I25.2 Old myocardial infarction (principal); Z79.01 Long term (current) use of anticoagulants | CPT/HCPCS: 85610 ==

== ENCOUNTER 2018-03-06 12:08 | Outpatient (CLI) | payer MEDICARE | END 2018-03-06 12:09 | disposition home or self-care (01) | LOC: LAB 12:08 | PROVIDERS: ATTEND Physician Assistant Medical | DX: I25.2 Old myocardial infarction (principal); Z79.01 Long term (current) use of anticoagulants | CPT/HCPCS: 85610 ==

== ENCOUNTER 2018-03-13 11:41 | Outpatient (CLI) | payer MEDICARE | END 2018-03-13 11:42 | disposition home or self-care (01) | LOC: LAB 11:41 | PROVIDERS: ATTEND Physician Assistant Medical | DX: I25.2 Old myocardial infarction (principal); Z79.01 Long term (current) use of anticoagulants | CPT/HCPCS: 85610 ==

== ENCOUNTER 2018-03-18 08:00 | Outpatient (CLI) | payer MEDICARE ==
[2018-03-18 14:19] LABS: CALCIUM 9.3 mg/dL (8.5-10.3); CREATININE 1.5 mg/dL (0.4-1.0)
== END 2018-03-18 08:01 | disposition home or self-care (01) ==
LOC: LAB.R 08:00
PROVIDERS: ATTEND Internal Medicine Cardiovascular Disease
DX: I25.5 Ischemic cardiomyopathy (principal); E78.5 Hyperlipidemia, unspecified
CPT/HCPCS: 80048

== ENCOUNTER 2018-03-25 19:16 | Outpatient (CLI) | payer MEDICARE | END 2018-03-25 19:17 | disposition critical access hospital (66) | LOC: EMS 19:16 | PROVIDERS: ATTEND Surgery | DX: R06.02 Shortness of breath (principal); R05 Cough | CPT/HCPCS: A0425; A0427 ==

== ENCOUNTER 2018-03-25 19:28 | Emergency (ER) | payer MEDICARE ==
[2018-03-25] MEDS ORDERED: MORPHINE 10 MG/ML VIAL IVP STA (19:41)
--- NOTE | 2018-03-25 19:43 | ED Physician Documentation ---
PD HPI DYSPNEA - Stated complaint Stated Complaint: DIFF BREATHING - Chief complaint Chief Complaint: Resp - History obtained from History obtained from: Patient, Family, EMS - History of Present Illness Timing - onset: How many hours ago (1) Timing - onset during: Light activity (She said she had been breathing pretty well early in the day. She had an abrupt onset of trouble breathing as she walked outside and the wind caught her in the face and seemed to trigger some trouble breathing. She denied any itchiness. She denies any history of allergies. She does have a history of congestive heart failure.) Timing - duration: Hours (1) Timing - details: Abrupt onset, Still present Inciting event(s): No: Out of meds, URI Improved by: BiPAP / CPAP (by EMS enroute). No: O2 Associated symptoms: Chest pain / discomfort (She has had some exertional dyspnea over the past week or 2 during cardiac rehab. She did not have chest pain per se.), Bilateral edema. No: Fever, Cough, Wheezing, Palpitations, Anxiety Similar symptoms before: Diagnosis (She has had an episode of CHF in the past and was here at our hospital about 2 months ago with dyspnea. However it was not as abrupt as this episode was in onset.) Recently seen: Emergency Dept, Admitted (2 months ago with an episode of CHF) Review of Systems Constitutional: denies: Fever, Chills, Myalgias Nose: denies: Rhinorrhea / runny nose, Congestion Throat: denies: Sore throat Cardiac: reports: Chest pain / pressure, Pedal edema. denies: Palpitations, Calf pain Respiratory: reports: Dyspnea. denies: Cough, Hemoptysis, Wheezing GI: denies: Abdominal Pain, Nausea, Vomiting, Diarrhea, Bloody / black stool : denies: Dysuria, Frequency Neurologic: reports: Generalized weakness. 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 HEENT: Tonsil/Adenoidectomy - Present Medications Home Medications: Ambulatory Orders Medication Instructions Recorded Confirmed Metformin HCl 500 mg PO BIDWM 02/04/15 10/12/18 Glyburide 5 mg PO BIDWM 05/07/15 01/18/18 Atorvastatin Calcium 40 mg PO QPM 01/18/18 01/18/18 Clopidogrel Bisulfate [Clopidogrel] 75 mg PO DAILY 01/18/18 01/18/18 Colchicine 0.6 mg PO DAILY 01/18/18 01/18/18 Losartan Potassium 25 mg PO DAILY 01/18/18 01/18/18 Pantoprazole Sodium [Protonix] 40 mg PO QDAC 01/18/18 01/18/18 Furosemide [Lasix] 40 mg PO BIDDIURETIC #120 tablet 01/20/18 Metoprolol Succinate [Toprol Xl] 50 mg PO BID #60 tablet 01/20/18 Spironolactone [Aldactone] 25 mg PO DAILY #30 tablet 01/20/18 Warfarin [Coumadin] 5 mg PO 1300 tablet 01/20/18 - Allergies Allergies/Adverse Reactions: Allergies Allergy/AdvReac Type Severity Reaction Status Date / Time JAN Inhibitors AdvReac cough Verified 03/25/18 20:00 - Social History Does the pt smoke?: No Smoking Status: Never smoker Does the pt drink ETOH?: No Does the pt have substance abuse?: No - Immunizations Immunizations are current?: Yes PD ED PE NORMAL - Vitals Vital signs reviewed: Yes - General General: Alert and oriented X 3, Well developed/nourished - HEENT HEENT: Pharynx benign - Neck Neck: Supple, no meningeal sign, No adenopathy, No bruit, Other (JVD noted) - Cardiac Cardiac: No murmur. No: RRR (tachycardic but regular) - Respiratory Respiratory: Other (She arrives via EMS with a BiPAP in place she is breathing quite labored lady with accessory muscles. She is anxious. She is wide-eyed with the look of tear in her face. She is able to talk in partial sentences. She is able to follow commands. There is fine crackles sounds in the bases and retirement up on both sides. There is some expiratory wheezing centrally.). No: Clear bilaterally (fine crackles at the bases) - Abdomen Abdomen: Soft, Non tender - Back Back: No CVA TTP - Derm Derm: Warm and dry. No: Normal color (pale) - Extremities Extremities: No deformity, No tenderness to palpate, Normal ROM s pain, No calf tenderness / cord, Other (2+ edema in both legs. ) - Neuro Neuro: Alert and oriented X 3, No motor deficit, Other (anxious) - Psych Psych: Normal mood. No: Normal affect (anxious) Results - Vitals Vitals: Vital Signs - 24 hr 03/25/18 03/25/18 03/25/18 19:31 19:47 20:13 Temperature 35.8 C L Heart Rate 120 H 116 H 93 Respiratory 30 H 21 Rate Blood Pressure 162/104 H 112/62 O2 Saturation 90 L 98 03/25/18 03/25/18 03/25/18 20:30 20:58 21:30 Temperature Heart Rate 83 81 77 Respiratory 18 18 18 Rate Blood Pressure 107/56 L 97/56 L 98/52 L O2 Saturation 96 96 100 03/25/18 21:48 Temperature Heart Rate 116 H Respiratory Rate Blood Pressure O2 Saturation Oxygen O2 Source CPAP - EKG (time done) 19:40 Rate: Rate (enter#) (115) Rhythm: Sinus tachycardia [place]: Normal Intervals: Normal MI QRS: Normal Ischemia: Normal ST segments (there is slight ST elevation in V2/V3 without reciprocal changes. No prior ECG found in our record (though was admitted for CHF in January). I did not think it met STEMI criteria, but consider ischemic. ). No: ST depression, T wave inversion - Labs Labs: Laboratory Tests 03/25/18 03/25/18 03/25/18 20:16 20:16 20:16 WBC 6.1 RBC 4.08 L Hgb 12.4 Hct 37.0 MCV 90.6 MCH 30.5 MCHC 33.6 RDW 12.8 Plt Count 299 MPV 9.5 Neut # (Auto) 3.1 Lymph # (Auto) 2.1 [place] # (Auto) 0.6 Eos # (Auto) 0.2 Baso # (Auto) 0.0 Absolute Nucleated RBC 0.01 Nucleated RBC % 0.1 PT 20.5 H INR 1.8 H Bld Gas Analysis Time Sample Site ABG pH ABG pCO2 ABG pO2 ABG HCO3 ABG Total CO2 ABG O2 Saturation ABG Base Excess Martin Test Respiration Rate O2 Delivery Device Vent Mode FiO2 PEEP Pressure Support Vent IPAP Sodium 137 Potassium 4.0 Chloride 101 Carbon Dioxide 25 Anion Gap 11.0 BUN 40 H Creatinine 1.6 H Estimated GFR (MDRD) 32 L Glucose 240 H Calcium 9.1 Total Bilirubin 0.7 AST 17 ALT 16 Alkaline Phosphatase 57 Troponin I B-Natriuretic Peptide Total Protein 7.4 Albumin 3.9 Globulin 3.5 Albumin/Globulin Ratio 1.1 Lipase 36 03/25/18 03/25/18 03/25/18 20:16 20:16 20:16 WBC RBC Hgb Hct MCV MCH MCHC RDW Plt Count MPV Neut # (Auto) Lymph # (Auto) [place] # (Auto) Eos # (Auto) Baso # (Auto) Absolute Nucleated RBC Nucleated RBC % PT INR Bld Gas Analysis Time 2020 Sample Site RIGHT RADIAL ABG pH 7.28 L ABG pCO2 50 H ABG pO2 328 H* ABG HCO3 22.8 ABG Total CO2 24.2 ABG O2 Saturation 99 H ABG Base Excess -4.1 L Martin Test POSITIVE Respiration Rate 20 O2 Delivery Device BiPAP Vent Mode SYNCHRONOUS/TIMES FiO2 100.00 PEEP 5 Pressure Support Vent 5 IPAP 10 Sodium Potassium Chloride Carbon Dioxide Anion Gap BUN Creatinine Estimated GFR (MDRD) Glucose Calcium Total Bilirubin AST ALT Alkaline Phosphatase Troponin I < 0.04 B-Natriuretic Peptide 1047 H Total Protein Albumin Globulin Albumin/Globulin Ratio Lipase 03/25/18 03/25/18 21:56 23:30 WBC RBC Hgb Hct MCV MCH MCHC RDW Plt Count MPV Neut # (Auto) Lymph # (Auto) [place] # (Auto) Eos # (Auto) Baso # (Auto) Absolute Nucleated RBC Nucleated RBC % PT INR Bld Gas Analysis Time Sample Site ABG pH ABG pCO2 ABG pO2 ABG HCO3 ABG Total CO2 ABG O2 Saturation ABG Base Excess Martin Test Respiration Rate O2 Delivery Device Vent Mode FiO2 PEEP Pressure Support Vent IPAP Sodium Potassium Chloride Carbon Dioxide Anion Gap BUN Creatinine Estimated GFR (MDRD) Glucose Calcium Total Bilirubin AST ALT Alkaline Phosphatase Troponin I 0.07 0.18 B-Natriuretic Peptide Total Protein Albumin Globulin Albumin/Globulin Ratio Lipase - Rads (name of study) chest xray Radiology: Prelim report reviewed (interstitial fluid c/w pulmonary edema), EMP read contemporaneously, See rad report PD MEDICAL DECISION MAKING - ED course Complexity details: reviewed results (Given the abruptness of her symptoms with a significant CHF the concern from our hospitalist Dr. scuta was that there may have been an acute event causing it such as AR. She requested a repeat troponins here in the ER. These did show slight slow elevation from 0.04-0.07 and then 0.18. Given the slight increase in troponins associated with her abrupt symptoms, our hospitalist felt the patient was likely need cardiac e valuation and testing that was unavailable at our facility. I talked with the hospitalist at [facility] who is willing to accept the patient. 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 This was the result of giving her diuretics nitrates and morphine to help relieve the anxiety, decrease the preload and afterload and de-stress the heart.), considered differential (Abrupt worsening of breathing today with some exertional dyspnea recently and a baseline of bilateral leg edema. She has known prior AR and stent. Consider flash pulmonary edema with mild distribution of fluid versus fluid overload/CHF. The triggering event may be a new cardiac event.), d/w patient, d/w agriculture consultant (I talked with the [place] coordinating physician who gave approval to have the patient in any bed space that we could find available of and we were able to find a bed at [facility] and an accepting physician.) - Critical Care Time(min): 45 Time Includes: Direct patient care, Review records, Document care, Coordinate care, Medical consult Data interpretation: Labs, Pulse ox, ABG, CXR Procedures excluded from critical care time: EKG Departure - Departure Disposition: 66 [facility] DC/Xfer Clinical Impression: Acute dyspnea, Chest pain, rule out acute myocardial infarction Congestive heart failure Qualifiers: Heart failure type: unspecified Heart failure chronicity: acute on chronic Qualified Code(s): I50.9 - Heart failure, unspecified Condition: Stable Record reviewed to determine appropriate education?: Yes
--- NOTE | 2018-03-25 20:12 | XRAY Report ---
Reason: chest pain Procedure Date: 03/25/2018 Accession Number: [id number] / [id number] Procedure: XR - Chest 1 View X-Ray CPT Code: 45452 FULL RESULT: EXAM: CHEST RADIOGRAPHY EXAM DATE: 03/25/2018 07:52 PM. CLINICAL HISTORY: Chest pain. COMPARISON: 01/19/2018. TECHNIQUE: 1 view. FINDINGS: Lungs/Pleura: Diffuse hazy prominence of lung markings. No consolidation, definite effusion, or pneumothorax. Mediastinum: Mild to moderate cardiomegaly, probably unchanged. Mild upper lobe vascular fullness. Other: Degenerative changes. IMPRESSION: Cardiovascular fullness with increased lung markings, possible congestive failure. RADIA
[2018-03-25 20:26] LABS: BASOPHILS % (AUTO) 0.8 %; EOSINOPHILS # (AUTO) 0.2 10^3/uL (0.0-0.7); EOSINOPHILS % (AUTO) 3.8 %; HGB - HEMOGLOBIN 12.4 g/dL (12.0-16.0); LYMPHOCYTES # (AUTO) 2.1 10^3/uL (1.5-3.5); LYMPHOCYTES % (AUTO) 34.9 %; MEAN CORPUSCULAR HEMOGLOBIN 30.5 pg (27.0-31.0); MEAN CORPUSCULAR HGB CONC 33.6 g/dL (32.0-36.0); MEAN CORPUSCULAR VOLUME 90.6 fL (81.0-99.0); MEAN PLATELET VOLUME 9.5 fL (7.9-10.8); MONOCYTES # (AUTO) 0.6 10^3/uL (0.0-1.0); MONOCYTES % (AUTO) 9.6 %; NEUTROPHILS # (AUTO) 3.1 10^3/uL (1.5-6.6); NEUTROPHILS % (AUTO) 50.9 %; PLT - PLATELET COUNT 299 10^3/uL (130-450); RED BLOOD COUNT 4.08 10^6/uL (4.20-5.40); RED CELL DISTRIBUTION WIDTH 12.8 % (12.0-15.0); WHITE BLOOD COUNT 6.1 x10^3/uL (4.8-10.8)
[2018-03-25 20:36] LABS: INR 1.8 (0.8-1.2); PT - PROTHROMBIN TIME 20.5 secs (9.9-12.6)
[2018-03-25] MEDS ORDERED: FUROSEMIDE 40 MG/4 ML VIAL IVP STA (20:39)
[2018-03-25 20:41] LABS: ABG HCO3 22.8 mmol/L (22.0-26.0); ABG PCO2 50 mmHg (34-45); ABG PH 7.28 (7.35-7.45)
[2018-03-25 20:42] LABS: ABG BASE EXCESS -4.1 mmol/L (-2.0-3.0); ABG OXYGEN SATURATION 99 % (94-98); ABG TCO2 24.2 MMOL/L (21.0-29.0); ALBUMIN 3.9 g/dL (3.2-5.5); ALBUMIN/GLOBULIN RATIO 1.1 (1.0-2.2); ALLEN TEST POSITIVE; BILIRUBIN,TOTAL 0.7 mg/dL (0.2-1.0); CALCIUM 9.1 mg/dL (8.5-10.3); CREATININE 1.6 mg/dL (0.4-1.0); TOTAL PROTEIN 7.4 g/dL (6.7-8.2)
[2018-03-25 20:45] LABS: ABG PO2 328 mmHg (80-100)
[2018-03-26] MEDS ORDERED: INSULIN REGULAR HUMAN 100 UNIT/1 ML 10 ML MDV SUBQ STA (00:06)
[2018-03-26] MEDS ORDERED: CLOPIDOGREL 75 MG TABLET PO STA (00:07)
[2018-03-26] MEDS ORDERED: NITROGLYCERIN 50 MG/250 ML 50 MG/250 ML BOTTLE IV SCH (01:00)
[2018-03-26 02:15] VITALS: BP 122/63
[2018-03-26] MEDS ORDERED: INSULIN ASPART 300 UNIT/3 ML PEN SUBQ SCH (08:00)
== END 2018-03-26 02:15 | disposition short-term general hospital (02) ==
LOC: EDUNIT# → ED 19:28
DX: I11.0 Hypertensive heart disease with heart failure (principal); I50.9 Heart failure, unspecified; R07.9 Chest pain, unspecified; R74.8 Abnormal levels of other serum enzymes; R00.0 Tachycardia, unspecified; R94.31 Abnormal electrocardiogram [ECG] [EKG]; F41.9 Anxiety disorder, unspecified; I25.10 Atherosclerotic heart disease of native coronary artery without angina pectoris; I25.2 Old myocardial infarction; Z95.5 Presence of coronary angioplasty implant and graft; E11.9 Type 2 diabetes mellitus without complications; Z79.84 Long term (current) use of oral hypoglycemic drugs; Z79.01 Long term (current) use of anticoagulants
CPT/HCPCS: 36415; 36600; 71045; 80053; 82550; 82553; 82803; 83036; 83690; 83735; 83880; 84484; 85025; 85610; 93005; 96374; 96375; 99284; 99285; 99291

== ENCOUNTER 2018-03-26 02:23 | Outpatient (CLI) | payer MEDICARE | END 2018-03-26 02:24 | disposition short-term general hospital (02) | LOC: EMS 02:23 | PROVIDERS: ATTEND Surgery | DX: I50.9 Heart failure, unspecified (principal); R79.89 Other specified abnormal findings of blood chemistry | CPT/HCPCS: A0425; A0426 ==

== ENCOUNTER 2018-04-12 09:56 | Outpatient (CLI) | payer MEDICARE | END 2018-04-12 09:57 | disposition home or self-care (01) | LOC: LAB 09:56 | PROVIDERS: ATTEND Physician Assistant Medical | DX: Z79.01 Long term (current) use of anticoagulants (principal); I25.2 Old myocardial infarction | CPT/HCPCS: 85610 ==

== ENCOUNTER 2018-04-23 08:00 | Outpatient (CLI) | payer MEDICARE ==
[2018-04-23 12:07] LABS: BASOPHILS % (AUTO) 0.8 %; EOSINOPHILS # (AUTO) 0.3 10^3/uL (0.0-0.7); EOSINOPHILS % (AUTO) 5.9 %; LYMPHOCYTES # (AUTO) 1.7 10^3/uL (1.5-3.5); LYMPHOCYTES % (AUTO) 38.1 %; MEAN CORPUSCULAR HEMOGLOBIN 29.6 pg (27.0-31.0); MEAN CORPUSCULAR HGB CONC 33.8 g/dL (32.0-36.0); MEAN CORPUSCULAR VOLUME 87.6 fL (81.0-99.0); MEAN PLATELET VOLUME 9.9 fL (7.9-10.8); MONOCYTES # (AUTO) 0.6 10^3/uL (0.0-1.0); MONOCYTES % (AUTO) 12.9 %; NEUTROPHILS # (AUTO) 1.9 10^3/uL (1.5-6.6); NEUTROPHILS % (AUTO) 42.3 %; PLT - PLATELET COUNT 264 10^3/uL (130-450); RED CELL DISTRIBUTION WIDTH 13.1 % (12.0-15.0); WHITE BLOOD COUNT 4.6 x10^3/uL (4.8-10.8)
[2018-04-23 12:21] LABS: ALBUMIN 3.8 g/dL (3.2-5.5); ALBUMIN/GLOBULIN RATIO 1.1 (1.0-2.2); ALKALINE PHOSPHATASE 43 IU/L (42-121); ALT ALANINE AMINOTRANSFERASE 12 IU/L (10-60); AST ASPARTATE AMINOTRANSFERASE 14 IU/L (10-42); BILIRUBIN,TOTAL 0.6 mg/dL (0.2-1.0); BUN - BLOOD UREA NITROGEN 45 mg/dL (6-20); CALCIUM 9.5 mg/dL (8.5-10.3); CARBON DIOXIDE - CO2 26 mmol/L (21-32); CHLORIDE 99 mmol/L (101-111); CHOLESTEROL 148 mg/dL; CREATININE 1.3 mg/dL (0.4-1.0); GFR - MDRD 41 (>89); GLUCOSE 118 mg/dL (70-100); HDL CHOLESTEROL 37 mg/dL; LDL CHOLESTEROL,CALCULATED 81 mg/dL; LDL/HDL RATIO 2.2 (<4.4); SODIUM 138 mmol/L (135-145); TOTAL PROTEIN 7.4 g/dL (6.7-8.2); VLDL CHOLESTEROL 30 mg/dL
== END 2018-04-23 23:59 | disposition home or self-care (01) ==
LOC: LAB.R 08:00
PROVIDERS: ATTEND Physician Assistant Medical
DX: E78.2 Mixed hyperlipidemia (principal); Z86.79 Personal history of other diseases of the circulatory system; I25.2 Old myocardial infarction; I10 Essential (primary) hypertension; Z79.899 Other long term (current) drug therapy
CPT/HCPCS: 80053; 80061; 83721; 83880; 85025

== ENCOUNTER 2018-04-26 09:11 | Outpatient (CLI) | payer MEDICARE | END 2018-04-26 09:12 | disposition home or self-care (01) | LOC: NS 09:11 | PROVIDERS: ATTEND Physician Assistant Medical | DX: Z71.3 Dietary counseling and surveillance (principal); E11.9 Type 2 diabetes mellitus without complications; I25.2 Old myocardial infarction; E78.2 Mixed hyperlipidemia; E66.8 Other obesity; Z68.36 Body mass index [BMI] 36.0-36.9, adult | CPT/HCPCS: 97802 ==

== ENCOUNTER 2018-05-08 11:53 | Outpatient (CLI) | payer MEDICARE | END 2018-05-08 11:54 | disposition home or self-care (01) | LOC: LAB 11:53 | PROVIDERS: ATTEND Physician Assistant Medical | DX: I25.2 Old myocardial infarction (principal); Z79.01 Long term (current) use of anticoagulants | CPT/HCPCS: 85610 ==

== ENCOUNTER 2018-05-22 11:43 | Outpatient (CLI) | payer MEDICARE | END 2018-05-22 11:44 | disposition home or self-care (01) | LOC: LAB 11:43 | PROVIDERS: ATTEND Physician Assistant Medical | DX: I25.2 Old myocardial infarction (principal); Z79.01 Long term (current) use of anticoagulants | CPT/HCPCS: 85610 ==

== ENCOUNTER 2018-06-04 09:57 | Outpatient (CLI) | payer MEDICARE | END 2018-06-04 09:58 | disposition home or self-care (01) | LOC: NS 09:57 | PROVIDERS: ATTEND Physician Assistant Medical | DX: Z71.3 Dietary counseling and surveillance (principal); E11.9 Type 2 diabetes mellitus without complications; I25.2 Old myocardial infarction; E78.2 Mixed hyperlipidemia; E66.8 Other obesity; Z86.79 Personal history of other diseases of the circulatory system; Z68.35 Body mass index [BMI] 35.0-35.9, adult | CPT/HCPCS: 97803 ==

== ENCOUNTER 2018-06-20 12:10 | Outpatient (CLI) | payer MEDICARE | END 2018-06-20 12:11 | disposition home or self-care (01) | LOC: LAB 12:10 | PROVIDERS: ATTEND Internal Medicine | DX: Z79.01 Long term (current) use of anticoagulants (principal); I51.3 Intracardiac thrombosis, not elsewhere classified | CPT/HCPCS: 85610 ==

== ENCOUNTER 2018-06-27 13:06 | Outpatient (CLI) | payer MEDICARE | END 2018-06-27 13:07 | disposition home or self-care (01) | LOC: LAB 13:06 | PROVIDERS: ATTEND Internal Medicine | DX: I51.3 Intracardiac thrombosis, not elsewhere classified (principal); Z79.01 Long term (current) use of anticoagulants | CPT/HCPCS: 85610 ==

== ENCOUNTER 2018-07-04 15:20 | Outpatient (CLI) | payer MEDICARE | END 2018-07-04 15:21 | disposition home or self-care (01) | LOC: LAB 15:20 | PROVIDERS: ATTEND Internal Medicine | DX: I51.3 Intracardiac thrombosis, not elsewhere classified (principal); Z79.01 Long term (current) use of anticoagulants | CPT/HCPCS: 85610 ==

== ENCOUNTER 2018-07-19 13:40 | Outpatient (CLI) | payer MEDICARE | END 2018-07-19 13:41 | disposition home or self-care (01) | LOC: LAB 13:40 | PROVIDERS: ATTEND Internal Medicine | DX: Z79.01 Long term (current) use of anticoagulants (principal); I51.3 Intracardiac thrombosis, not elsewhere classified | CPT/HCPCS: 85610 ==

== ENCOUNTER 2018-07-26 10:06 | Outpatient (CLI) | payer MEDICARE | END 2018-07-26 10:07 | disposition home or self-care (01) | LOC: LAB 10:06 | PROVIDERS: ATTEND Internal Medicine | DX: I51.3 Intracardiac thrombosis, not elsewhere classified (principal); Z79.01 Long term (current) use of anticoagulants | CPT/HCPCS: 85610 ==

== ENCOUNTER 2018-08-09 12:34 | Outpatient (CLI) | payer MEDICARE | END 2018-08-09 12:35 | disposition home or self-care (01) | LOC: LAB 12:34 | PROVIDERS: ATTEND Internal Medicine | DX: I51.3 Intracardiac thrombosis, not elsewhere classified (principal); Z79.01 Long term (current) use of anticoagulants | CPT/HCPCS: 85610 ==

== ENCOUNTER 2018-08-19 10:54 | Outpatient (CLI) | payer MEDICARE | END 2018-08-19 10:55 | disposition home or self-care (01) | LOC: LAB 10:54 | PROVIDERS: ATTEND Internal Medicine | DX: I51.3 Intracardiac thrombosis, not elsewhere classified (principal); Z79.01 Long term (current) use of anticoagulants | CPT/HCPCS: 85610 ==

== ENCOUNTER 2018-09-05 15:22 | Outpatient (CLI) | payer MEDICARE | END 2018-09-05 15:23 | disposition home or self-care (01) | LOC: LAB 15:22 | PROVIDERS: ATTEND Internal Medicine | DX: I51.3 Intracardiac thrombosis, not elsewhere classified (principal); Z79.01 Long term (current) use of anticoagulants | CPT/HCPCS: 85610 ==

== ENCOUNTER 2018-09-25 10:15 | Outpatient (CLI) | payer MEDICARE ==
[2018-09-25 10:52] LABS: HB2 TOTAL 13.5 g/dL; HEMOGLOBIN A1C 0.52 g/dL; HEMOGLOBIN A1C % 5.7 % (4.6-6.2)
[2018-09-25 10:54] LABS: ALT ALANINE AMINOTRANSFERASE 16 IU/L (10-60); AST ASPARTATE AMINOTRANSFERASE 18 IU/L (10-42)
[2018-09-25 10:55] LABS: CHOL/HDL RATIO 3.6 (<4.4); CHOLESTEROL 147 mg/dL; HDL CHOLESTEROL 41 mg/dL; LDL CHOLESTEROL,CALCULATED 82 mg/dL; VLDL CHOLESTEROL 24 mg/dL
== END 2018-09-25 10:16 | disposition home or self-care (01) ==
LOC: LAB 10:15
PROVIDERS: ATTEND Internal Medicine
DX: E78.5 Hyperlipidemia, unspecified (principal); E11.9 Type 2 diabetes mellitus without complications; Z79.01 Long term (current) use of anticoagulants
CPT/HCPCS: 36415; 80061; 83036; 83721; 84450; 84460; 85610

== ENCOUNTER 2018-10-02 07:15 | Outpatient (CLI) | payer MEDICARE | END 2018-10-02 07:16 | disposition home or self-care (01) | LOC: LAB 07:15 | PROVIDERS: ATTEND Internal Medicine | DX: Z79.01 Long term (current) use of anticoagulants (principal); I51.3 Intracardiac thrombosis, not elsewhere classified | CPT/HCPCS: 85610 ==

== ENCOUNTER 2018-10-11 10:02 | Outpatient (CLI) | payer MEDICARE ==
[2018-10-11 11:02] LABS: BASOPHILS % (AUTO) 0.9 %; EOSINOPHILS # (AUTO) 0.3 10^3/uL (0.0-0.7); EOSINOPHILS % (AUTO) 6.4 %; HGB - HEMOGLOBIN 13.1 g/dL (12.0-16.0); LYMPHOCYTES # (AUTO) 1.7 10^3/uL (1.5-3.5); LYMPHOCYTES % (AUTO) 38.8 %; MEAN CORPUSCULAR HEMOGLOBIN 29.8 pg (27.0-31.0); MEAN CORPUSCULAR HGB CONC 32.4 g/dL (32.0-36.0); MEAN PLATELET VOLUME 11.4 fL (7.9-10.8); MONOCYTES # (AUTO) 0.8 10^3/uL (0.0-1.0); MONOCYTES % (AUTO) 17.2 %; NEUTROPHILS # (AUTO) 1.6 10^3/uL (1.5-6.6); NEUTROPHILS % (AUTO) 36.5 %; PLT - PLATELET COUNT 266 10^3/uL (130-450); RED BLOOD COUNT 4.39 10^6/uL (4.20-5.40); WHITE BLOOD COUNT 4.4 x10^3/uL (4.8-10.8)
--- NOTE | 2018-10-11 14:59 | XRAY Report ---
Reason: HYPEREXTENSION INJURY Procedure Date: 10/11/2018 Accession Number: [id number] / [id number] Procedure: XR - Hand 2 View RT CPT Code: FULL RESULT: EXAM: RIGHT HAND RADIOGRAPHY EXAM DATE: 10/11/2018 10:25 AM. CLINICAL HISTORY: Previous fall injury. Pain between the second and third metacarpals. COMPARISON: None. TECHNIQUE: 3 views. FINDINGS: Periarticular erosions at the radial and ulnar aspects of the base of the fifth proximal phalanx. No acute fracture or bone lesions. No joint subluxations. The joint spaces are preserved. Soft Tissues: Normal. No soft tissue swelling. IMPRESSION: 1. Periarticular erosions at the base of the fifth proximal phalanx which may be due to an inflammatory arthritis. 2. No acute fracture or dislocation. RADIA
== END 2018-10-11 10:03 | disposition home or self-care (01) ==
LOC: DI 10:02
PROVIDERS: ATTEND Family Medicine
DX: S69.81XA Other specified injuries of right wrist, hand and finger(s), initial encounter (principal); M24.80 Other specific joint derangements of unspecified joint, not elsewhere classified; L03.113 Cellulitis of right upper limb; I51.3 Intracardiac thrombosis, not elsewhere classified; Z79.01 Long term (current) use of anticoagulants
CPT/HCPCS: 36415; 85025; 85610; 85651; 86140

== ENCOUNTER 2018-10-30 15:44 | Outpatient (CLI) | payer MEDICARE | END 2018-10-30 15:45 | disposition home or self-care (01) | LOC: LAB 15:44 | PROVIDERS: ATTEND Internal Medicine | DX: Z79.01 Long term (current) use of anticoagulants (principal); I51.3 Intracardiac thrombosis, not elsewhere classified | CPT/HCPCS: 85610 ==

== ENCOUNTER 2018-11-21 10:05 | Outpatient (CLI) | payer MEDICARE | END 2018-11-21 10:06 | disposition home or self-care (01) | LOC: LAB 10:05 | PROVIDERS: ATTEND Internal Medicine | DX: Z79.01 Long term (current) use of anticoagulants (principal); I51.3 Intracardiac thrombosis, not elsewhere classified | CPT/HCPCS: 85610 ==

== ENCOUNTER 2018-11-28 13:53 | Outpatient (CLI) | payer MEDICARE | END 2018-11-28 13:54 | disposition home or self-care (01) | LOC: LAB 13:53 | PROVIDERS: ATTEND Internal Medicine | DX: Z79.01 Long term (current) use of anticoagulants (principal); I51.3 Intracardiac thrombosis, not elsewhere classified | CPT/HCPCS: 85610 ==

== ENCOUNTER 2018-12-06 08:00 | Outpatient (CLI) | payer MEDICARE | END 2018-12-06 23:59 | disposition home or self-care (01) | LOC: LAB.N 08:00 | PROVIDERS: ATTEND Family Medicine | DX: I51.3 Intracardiac thrombosis, not elsewhere classified (principal) | CPT/HCPCS: 85610 ==

== ENCOUNTER 2018-12-13 08:00 | Outpatient (CLI) | payer MEDICARE | END 2018-12-13 23:59 | disposition home or self-care (01) | LOC: LAB.N 08:00 | PROVIDERS: ATTEND Family Medicine | DX: I51.3 Intracardiac thrombosis, not elsewhere classified (principal) | CPT/HCPCS: 85610 ==

== ENCOUNTER 2019-05-10 08:47 | Outpatient (CLI) | payer MEDICARE ==
[2019-05-10 09:15] LABS: BASOPHILS % (AUTO) 0.8 %; EOSINOPHILS # (AUTO) 0.2 10^3/uL (0.0-0.7); EOSINOPHILS % (AUTO) 4.5 %; HGB - HEMOGLOBIN 13.2 g/dL (12.0-16.0); LYMPHOCYTES # (AUTO) 1.7 10^3/uL (1.5-3.5); LYMPHOCYTES % (AUTO) 35.7 %; MEAN CORPUSCULAR HEMOGLOBIN 30.1 pg (27.0-31.0); MEAN CORPUSCULAR HGB CONC 32.3 g/dL (32.0-36.0); MEAN CORPUSCULAR VOLUME 93.2 fL (81.0-99.0); MEAN PLATELET VOLUME 10.9 fL (7.9-10.8); MONOCYTES # (AUTO) 0.9 10^3/uL (0.0-1.0); MONOCYTES % (AUTO) 19.3 %; NEUTROPHILS # (AUTO) 1.9 10^3/uL (1.5-6.6); NEUTROPHILS % (AUTO) 39.5 %; PLT - PLATELET COUNT 254 10^3/uL (130-450); RED BLOOD COUNT 4.39 10^6/uL (4.20-5.40); RED CELL DISTRIBUTION WIDTH 12.1 % (12.0-15.0); WHITE BLOOD COUNT 4.7 x10^3/uL (4.8-10.8)
[2019-05-10 09:27] LABS: ALBUMIN/GLOBULIN RATIO 1.3 (1.0-2.2); CALCIUM 9.5 mg/dL (8.5-10.3); CREATININE 1.1 mg/dL (0.4-1.0); TOTAL PROTEIN 7.2 g/dL (6.7-8.2)
[2019-05-10 09:48] LABS: HB2 TOTAL 13.6 g/dL; HEMOGLOBIN A1C 0.57 g/dL
== END 2019-05-10 08:48 | disposition home or self-care (01) ==
LOC: LAB 08:47
PROVIDERS: ATTEND Family Medicine
DX: I11.0 Hypertensive heart disease with heart failure (principal); E66.9 Obesity, unspecified; B96.20 Unspecified Escherichia coli [E. coli] as the cause of diseases classified elsewhere; I50.9 Heart failure, unspecified; I25.10 Atherosclerotic heart disease of native coronary artery without angina pectoris; E78.5 Hyperlipidemia, unspecified; E11.59 Type 2 diabetes mellitus with other circulatory complications
CPT/HCPCS: 36415; 80053; 83036; 85025

== ENCOUNTER 2019-09-02 08:00 | Outpatient (CLI) | payer MEDICARE ==
[2019-09-02 14:08] LABS: BASOPHILS % (AUTO) 0.7 %; EOSINOPHILS # (AUTO) 0.2 10^3/uL (0.0-0.7); EOSINOPHILS % (AUTO) 5.5 %; HGB - HEMOGLOBIN 12.8 g/dL (12.0-16.0); LYMPHOCYTES # (AUTO) 1.6 10^3/uL (1.5-3.5); LYMPHOCYTES % (AUTO) 39.2 %; MEAN CORPUSCULAR HEMOGLOBIN 29.5 pg (27.0-31.0); MEAN CORPUSCULAR HGB CONC 31.3 g/dL (32.0-36.0); MEAN CORPUSCULAR VOLUME 94.2 fL (81.0-99.0); MEAN PLATELET VOLUME 11.7 fL (7.9-10.8); MONOCYTES # (AUTO) 0.6 10^3/uL (0.0-1.0); MONOCYTES % (AUTO) 14.8 %; NEUTROPHILS # (AUTO) 1.7 10^3/uL (1.5-6.6); NEUTROPHILS % (AUTO) 39.6 %; PLT - PLATELET COUNT 238 10^3/uL (130-450); RED BLOOD COUNT 4.34 10^6/uL (4.20-5.40); RED CELL DISTRIBUTION WIDTH 11.9 % (12.0-15.0); WHITE BLOOD COUNT 4.2 x10^3/uL (4.8-10.8)
[2019-09-02 14:23] LABS: BUN - BLOOD UREA NITROGEN 51 mg/dL (6-20); CALCIUM 9.4 mg/dL (8.5-10.3); CARBON DIOXIDE - CO2 31 mmol/L (21-32); CHLORIDE 104 mmol/L (101-111); CHOL/HDL RATIO 2.4 (<4.4); CHOLESTEROL 118 mg/dL; CREATININE 1.2 mg/dL (0.4-1.0); GLUCOSE 97 mg/dL (70-100); HB2 TOTAL 13.4 g/dL; HDL CHOLESTEROL 49 mg/dL; HEMOGLOBIN A1C 0.46 g/dL; HEMOGLOBIN A1C % 5.3 % (4.6-6.2); LDL CHOLESTEROL,CALCULATED 51 mg/dL; SODIUM 142 mmol/L (135-145); VLDL CHOLESTEROL 18 mg/dL
== END 2019-09-02 23:59 | disposition home or self-care (01) ==
LOC: LAB.WCP 08:00
PROVIDERS: ATTEND Family Medicine
DX: E78.5 Hyperlipidemia, unspecified (principal); I10 Essential (primary) hypertension; E11.9 Type 2 diabetes mellitus without complications
CPT/HCPCS: 36415; 80048; 80061; 83036; 83721; 85025

== ENCOUNTER 2020-02-17 08:00 | Outpatient (CLI) | payer MEDICARE ==
[2020-02-17 12:54] LABS: CALCIUM 9.2 mg/dL (8.5-10.3); CREATININE 1.1 mg/dL (0.4-1.0)
[2020-02-17 13:22] LABS: HEMOGLOBIN A1c% 5.7 % (4.27-6.07)
== END 2020-02-17 23:59 | disposition home or self-care (01) ==
LOC: LAB.WCP 08:00
PROVIDERS: ATTEND Family Medicine
DX: E11.51 Type 2 diabetes mellitus with diabetic peripheral angiopathy without gangrene (principal)
CPT/HCPCS: 36415; 80048; 83036

== ENCOUNTER 2020-07-16 08:00 | Outpatient (CLI) | payer MEDICARE ==
[2020-07-16 11:48] LABS: BASOPHILS % (AUTO) 0.8 %; EOSINOPHILS # (AUTO) 0.4 10^3/uL (0.0-0.7); EOSINOPHILS % (AUTO) 7.2 %; HCT - HEMATOCRIT 41.2 % (37.0-47.0); HGB - HEMOGLOBIN 13.1 g/dL (12.0-16.0); LYMPHOCYTES # (AUTO) 2.1 10^3/uL (1.5-3.5); LYMPHOCYTES % (AUTO) 43.4 %; MEAN CORPUSCULAR HEMOGLOBIN 30.3 pg (27.0-31.0); MEAN CORPUSCULAR HGB CONC 31.8 g/dL (32.0-36.0); MEAN CORPUSCULAR VOLUME 95.2 fL (81.0-99.0); MEAN PLATELET VOLUME 11.8 fL (7.9-10.8); MONOCYTES # (AUTO) 0.7 10^3/uL (0.0-1.0); MONOCYTES % (AUTO) 14.8 %; NEUTROPHILS # (AUTO) 1.6 10^3/uL (1.5-6.6); NEUTROPHILS % (AUTO) 33.6 %; PLT - PLATELET COUNT 257 10^3/uL (130-450); RED BLOOD COUNT 4.33 10^6/uL (4.20-5.40); RED CELL DISTRIBUTION WIDTH 12.4 % (12.0-15.0); WHITE BLOOD COUNT 4.9 x10^3/uL (4.8-10.8)
[2020-07-16 12:27] LABS: CREATININE,URINE 69.9 mg/dL; MICROALBUM/CREATININE RATIO,UR 74.4 ug/mg (<30.0); MICROALBUMIN,URINE 5.2 mg/dL (0-300.0)
[2020-07-16 13:15] LABS: ESTIMATED AVERAGE GLUCOSE 105 mg/dL (70-100); HEMOGLOBIN A1c% 5.3 % (4.27-6.07)
[2020-07-16 13:16] LABS: ALBUMIN/GLOBULIN RATIO 1.3 (1.0-2.2); ALKALINE PHOSPHATASE 51 IU/L (42-121); ALT ALANINE AMINOTRANSFERASE 16 IU/L (10-60); AST ASPARTATE AMINOTRANSFERASE 15 IU/L (10-42); BILIRUBIN,TOTAL 0.6 mg/dL (0.2-1.0); BUN - BLOOD UREA NITROGEN 52 mg/dL (6-20); CALCIUM 9.6 mg/dL (8.5-10.3); CARBON DIOXIDE - CO2 30 mmol/L (21-32); CHLORIDE 104 mmol/L (101-111); CHOL/HDL RATIO 2.7 (<4.4); CHOLESTEROL 133 mg/dL; CREATININE 1.1 mg/dL (0.4-1.0); GFR - MDRD 49 (>89); GLUCOSE 95 mg/dL (70-100); HDL CHOLESTEROL 49 mg/dL; LDL CHOLESTEROL,CALCULATED 63 mg/dL; LDL/HDL RATIO 1.3 (<4.4); POTASSIUM 4.1 mmol/L (3.5-5.0); SODIUM 143 mmol/L (135-145); TOTAL PROTEIN 7.2 g/dL (6.7-8.2); TRIGLYCERIDES 103 mg/dL; VLDL CHOLESTEROL 21 mg/dL
[2020-07-16 13:23] LABS: THYROID STIMULATING HORMONE 2.03 uIU/mL (0.34-5.60)
== END 2020-07-16 23:59 | disposition home or self-care (01) ==
LOC: LAB.WCP 08:00
PROVIDERS: ATTEND Family Medicine
DX: E11.51 Type 2 diabetes mellitus with diabetic peripheral angiopathy without gangrene (principal); E66.9 Obesity, unspecified; I51.3 Intracardiac thrombosis, not elsewhere classified; I50.9 Heart failure, unspecified; I25.10 Atherosclerotic heart disease of native coronary artery without angina pectoris; M15.9 Polyosteoarthritis, unspecified; E78.5 Hyperlipidemia, unspecified; I10 Essential (primary) hypertension
CPT/HCPCS: 36415; 80053; 80061; 82043; 82570; 83036; 83721; 84443; 85025

== ENCOUNTER 2020-12-20 07:20 | Outpatient (CLI) | payer MEDICARE ==
[2020-12-20 11:59] LABS: CALCIUM 9.7 mg/dL (8.5-10.3); CREATININE 1.1 mg/dL (0.4-1.0); POTASSIUM 4.4 mmol/L (3.5-5.0)
[2020-12-20 12:01] LABS: ESTIMATED AVERAGE GLUCOSE 120 mg/dL (70-100); HEMOGLOBIN A1c% 5.8 % (4.27-6.07)
[2020-12-20 12:14] LABS: CREATININE,URINE 113.5 mg/dL; MICROALBUMIN,URINE 8.4 mg/dL (0-300.0)
== END 2020-12-20 23:59 | disposition home or self-care (01) ==
LOC: LAB.WCP 07:20
PROVIDERS: ATTEND Family Medicine
DX: E11.59 Type 2 diabetes mellitus with other circulatory complications (principal)
CPT/HCPCS: 36415; 80048; 82043; 82570; 83036

== ENCOUNTER 2021-08-01 07:56 | Outpatient (CLI) | payer MEDICARE ==
[2021-08-01 12:18] LABS: BASOPHILS % (AUTO) 0.8 %; EOSINOPHILS # (AUTO) 0.3 10^3/uL (0.0-0.7); HCT - HEMATOCRIT 41.2 % (37.0-47.0); HGB - HEMOGLOBIN 13.4 g/dL (12.0-16.0); LYMPHOCYTES # (AUTO) 1.8 10^3/uL (1.5-3.5); MEAN CORPUSCULAR HGB CONC 32.5 g/dL (32.0-36.0); MEAN CORPUSCULAR VOLUME 95.4 fL (81.0-99.0); MEAN PLATELET VOLUME 12.1 fL (7.9-10.8); MONOCYTES # (AUTO) 0.8 10^3/uL (0.0-1.0); MONOCYTES % (AUTO) 15.9 %; NEUTROPHILS # (AUTO) 1.8 10^3/uL (1.5-6.6); NEUTROPHILS % (AUTO) 38.3 %; PLT - PLATELET COUNT 240 10^3/uL (130-450); RED BLOOD COUNT 4.32 10^6/uL (4.20-5.40); RED CELL DISTRIBUTION WIDTH 12.3 % (12.0-15.0); WHITE BLOOD COUNT 4.7 x10^3/uL (4.8-10.8)
[2021-08-01 12:34] LABS: ALBUMIN/GLOBULIN RATIO 1.3 (1.0-2.2); ALKALINE PHOSPHATASE 56 IU/L (42-121); ALT ALANINE AMINOTRANSFERASE 24 IU/L (10-60); AST ASPARTATE AMINOTRANSFERASE 20 IU/L (10-42); BILIRUBIN,TOTAL 0.9 mg/dL (0.2-1.0); BUN - BLOOD UREA NITROGEN 35 mg/dL (6-20); CALCIUM 9.6 mg/dL (8.5-10.3); CARBON DIOXIDE - CO2 33 mmol/L (21-32); CHLORIDE 101 mmol/L (101-111); CHOLESTEROL 125 mg/dL; CREATININE 1.1 mg/dL (0.4-1.0); GFR - MDRD 49 (>89); GLUCOSE 91 mg/dL (70-100); HDL CHOLESTEROL 61 mg/dL; LDL CHOLESTEROL,CALCULATED 48 mg/dL; LDL/HDL RATIO 0.8 (<4.4); POTASSIUM 4.2 mmol/L (3.5-5.0); SODIUM 143 mmol/L (135-145); TOTAL PROTEIN 7.2 g/dL (6.7-8.2); TRIGLYCERIDES 82 mg/dL; VLDL CHOLESTEROL 16 mg/dL
[2021-08-01 12:43] LABS: THYROID STIMULATING HORMONE 3.2 uIU/mL (0.34-5.60)
[2021-08-01 12:53] LABS: CREATININE,URINE 51.9 mg/dL; MICROALBUM/CREATININE RATIO,UR 73.2 ug/mg (<30.0); MICROALBUMIN,URINE 3.8 mg/dL (0-300.0)
[2021-08-01 13:10] LABS: ESTIMATED AVERAGE GLUCOSE 117 mg/dL (70-100); HEMOGLOBIN A1c% 5.7 % (4.27-6.07)
== END 2021-08-01 07:57 | disposition home or self-care (01) ==
LOC: LAB.N 07:56
PROVIDERS: ATTEND Family Medicine
DX: I11.0 Hypertensive heart disease with heart failure (principal); I50.9 Heart failure, unspecified; E11.59 Type 2 diabetes mellitus with other circulatory complications; I25.10 Atherosclerotic heart disease of native coronary artery without angina pectoris; M15.9 Polyosteoarthritis, unspecified; E66.9 Obesity, unspecified; Z79.01 Long term (current) use of anticoagulants
CPT/HCPCS: 36415; 80053; 80061; 82043; 82570; 83036; 83721; 84443; 85025

== ENCOUNTER 2021-12-08 23:35 | Outpatient (CLI) | payer MEDICARE | END 2021-12-08 23:36 | disposition critical access hospital (66) | LOC: EMS 23:35 | DX: R10.13 Epigastric pain (principal); R11.10 Vomiting, unspecified | CPT/HCPCS: A0425; A0427 ==

== ENCOUNTER 2021-12-08 23:50 | Emergency (ER) | payer MEDICARE ==
[2021-12-09] MEDS ORDERED: ONDANSETRON 4 MG/2 ML VIAL IVP STA (00:06)
[2021-12-09] MEDS ORDERED: SODIUM CHLORIDE 0.9% 1,000 ML IV STA (00:06)
[2021-12-09] MEDS ORDERED: HYDROmorphone 0.5 MG/0.5 ML SYRINGE IVP STA (00:06)
--- NOTE | 2021-12-09 00:09 | ED Physician Documentation ---
PD HPI ABD PAIN - Stated complaint Stated Complaint: EPIGASTRIC PX - Chief complaint Chief Complaint: Cardiac - History obtained from History obtained from: Patient, EMS - Additional information Additional information: The patient is brought to the emergency department by EMS for chief complaint of epigastric pain that started this evening. Patient states she ate several hours ago and a couple hours after that, began to notice worsening epigastric pain. She states became very intense and she ended up vomiting. She states she had a similar episode about 1 week ago, but when she vomited the pain went away. However, that did not happen tonight. The patient states that she has not had any shortness of breath or stool changes. She is still feeling a little nauseated and still has epigastric pain though it is better than it was. She states it was originally 10 out of 10 and now it is an 8 out of 10. She states nothing makes it better or worse in particular. The patient states that her pain does not radiate anywhere. The patient states that she has a history of coronary artery disease and had an SD with stent placement in 2018. She is followed by Dr. Munoz and had an echo and stress echo, as well as a carotid Doppler, 3 days ago. She has an appointment Dr. Yang tomorrow. Review of her echo reveals she has an EF of 30 to 50% with severe hypokinesis of the previously infarcted area. She also has severe dilatation of her left ventricle which is the area that was affected by her prior SD. However, no new ischemia was noted on the stress echo. The patient's carotids had less than 50% stenosis bilaterally. Review of Systems Ten Systems: 10 systems reviewed and negative Constitutional: reports: Reviewed and negative Eyes: reports: Reviewed and negative Ears: reports: Reviewed and negative Nose: reports: Reviewed and negative Throat: reports: Reviewed and negative Cardiac: reports: Reviewed and negative. denies: Chest pain / pressure Respiratory: reports: Reviewed and negative GI: reports: Abdominal Pain, Nausea, Vomiting : reports: Reviewed and negative Skin: reports: Reviewed and negative Musculoskeletal: reports: Reviewed and negative Neurologic: reports: Reviewed and negative Psychiatric: reports: Reviewed and negative Endocrine: reports: Reviewed and negative Immunocompromised: reports: Reviewed and negative PD PAST MEDICAL HISTORY - Past Medical History Cardiovascular: Congestive heart failure, Hypertension, High cholesterol, Coronary artery disease, SD Respiratory: None Neuro: None Endocrine/Autoimmune: Type 2 diabetes GI: None ONCOLOGY PATIENT NAVIGATOR: None : Frequency HEENT: None Psych: None Musculoskeletal: Osteoarthritis Derm: None - Past Surgical History General: Appendectomy /ONCOLOGY 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: Tubal ligation HEENT: Cataracts, Tonsil/Adenoidectomy - Present Medications Home Medications: Ambulatory Orders Medication Instructions Recorded Confirmed Metformin HCl 500 mg PO DAILY 05/13/14 11/16/21 Atorvastatin Calcium 80 mg PO QPM 01/18/18 11/16/21 Losartan Potassium 25 mg PO DAILY 01/18/18 11/16/21 Furosemide [Lasix] 40 mg PO BIDDIURETIC #120 tablet 01/20/18 11/16/21 Metoprolol Succinate [Toprol Xl] 50 mg PO BID #60 tablet 01/20/18 11/16/21 Ascorbic Acid [Vitamin C] 500 mg PO DAILY 09/28/21 11/16/21 Aspirin [Aspirin EC] 81 mg PO DAILY 09/28/21 11/16/21 Cholecalciferol [Vitamin D3] 2,000 unit PO DAILY 09/28/21 11/16/21 Glimepiride 1 mg PO DAILY 09/28/21 11/16/21 Prasugrel HCl [Effient] 10 mg PO DAILY 09/28/21 11/16/21 - Allergies Allergies/Adverse Reactions: Allergies Allergy/AdvReac Type Severity Reaction Status Date / Time adhesive tape AdvReac Mild Rash Verified 12/08/21 23:59 JAN Inhibitors AdvReac cough Verified 12/08/21 23:59 - Social History Does the pt smoke?: No Smoking Status: Former smoker (quit > 25 years ago) Does the pt drink ETOH?: No Does the pt have substance abuse?: No - Immunizations Immunizations are current?: Yes - POLST Patient has POLST: No PD ED PE NORMAL - Vitals Vital signs reviewed: Yes - General General: Alert and oriented X 3, No acute distress, Well developed/nourished, Other (The patient appears mildly uncomfortable and shivering. Otherwise no apparent distress.) - HEENT HEENT: Atraumatic, PERRL, EOMI, Moist mucous membranes - Neck Neck: Supple, no meningeal sign - Cardiac Cardiac: RRR, No murmur, Strong equal pulses - Respiratory Respiratory: No respiratory distress, Clear bilaterally - Abdomen Abdomen: Soft, Non tender, Non distended - Derm Derm: Normal color, Warm and dry, No rash - Extremities Extremities: No deformity, No edema, No calf tenderness / cord - Neuro Neuro: Alert and oriented X 3 - Psych Psych: Normal mood, Normal affect Results - Vitals Vitals: Vital Signs - 24 hr 12/08/21 12/09/21 12/09/21 23:59 00:34 01:04 Temperature 36.5 C Heart Rate 93 93 99 Respiratory 16 16 20 Rate Blood Pressure 145/87 H 148/71 H 152/62 H O2 Saturation 96 91 L 90 L 12/09/21 12/09/21 12/09/21 02:30 03:00 04:00 Temperature Heart Rate 97 89 87 Respiratory 23 22 22 Rate Blood Pressure 162/74 H 137/86 H 140/106 H O2 Saturation 92 92 92 12/09/21 05:25 Temperature 36.6 C Heart Rate 88 Respiratory 20 Rate Blood Pressure 123/68 O2 Saturation 93 Oxygen O2 Source Nasal cannula - Labs Labs: Laboratory Tests 12/09/21 12/09/21 12/09/21 00:50 00:50 00:50 WBC RBC Hgb Hct MCV MCH MCHC RDW Plt Count MPV Neut # (Auto) Lymph # (Auto) [place] # (Auto) Eos # (Auto) Baso # (Auto) Absolute Nucleated RBC Nucleated RBC % PT 11.5 INR 1.0 Sodium 138 Potassium 4.0 Chloride 98 L Carbon Dioxide 25 Anion Gap 15.0 H BUN 35 H Creatinine 1.1 H Estimated GFR (MDRD) 49 L Glucose 179 H Calcium 9.7 Total Bilirubin 2.4 H AST 364 H ALT 300 H Alkaline Phosphatase 160 H Troponin I High Sens 13.7 Total Protein 7.7 Albumin 4.1 Globulin 3.6 Albumin/Globulin Ratio 1.1 Lipase 76 H Nasal Adenovirus (PCR) Nasal B. parapertussis DNA (PCR) Nasal Coronavir 229E PCR Nasal Coronavir HKU1 PCR Nasal Coronavir NL63 PCR Nasal Coronavir OC43 PCR Nasal Enterovir/Rhinovir PCR Nasal Influenza B PCR Nasal Influenza A PCR Nasal Parainfluen 1 PCR Nasal Parainfluen 2 PCR Nasal Parainfluen 3 PCR Nasal Parainfluen 4 PCR Nasal RSV (PCR) Nasal B.pertussis DNA PCR Nasal C.pneumoniae (PCR) See Human Metapneumo PCR Nasal M.pneumoniae (PCR) Nasal SARS-CoV-2 (PCR) 12/09/21 12/09/21 01:30 01:36 WBC 5.3 RBC 4.00 L Hgb 12.4 Hct 37.5 MCV 93.8 MCH 31.0 MCHC 33.1 RDW 12.1 Plt Count 256 MPV 11.0 H Neut # (Auto) 4.7 Lymph # (Auto) 0.3 L [place] # (Auto) 0.3 Eos # (Auto) 0.0 Baso # (Auto) 0.0 Absolute Nucleated RBC 0.00 Nucleated RBC % 0.0 PT INR Sodium Potassium Chloride Carbon Dioxide Anion Gap BUN Creatinine Estimated GFR (MDRD) Glucose Calcium Total Bilirubin AST ALT Alkaline Phosphatase Troponin I High Sens Total Protein Albumin Globulin Albumin/Globulin Ratio Lipase Nasal Adenovirus (PCR) NOT DETECTED Nasal B. parapertussis DNA (PCR) NOT DETECTED Nasal Coronavir 229E PCR NOT DETECTED Nasal Coronavir HKU1 PCR NOT DETECTED Nasal Coronavir NL63 PCR NOT DETECTED Nasal Coronavir OC43 PCR NOT DETECTED Nasal Enterovir/Rhinovir PCR NOT DETECTED Nasal Influenza B PCR NOT DETECTED Nasal Influenza A PCR NOT DETECTED Nasal Parainfluen 1 PCR NOT DETECTED Nasal Parainfluen 2 PCR NOT DETECTED Nasal Parainfluen 3 PCR NOT DETECTED Nasal Parainfluen 4 PCR NOT DETECTED Nasal RSV (PCR) NOT DETECTED Nasal B.pertussis DNA PCR NOT DETECTED Nasal C.pneumoniae (PCR) NOT DETECTED See Human Metapneumo PCR NOT DETECTED Nasal M.pneumoniae (PCR) NOT DETECTED Nasal SARS-CoV-2 (PCR) NOT DETECTED - Rads (name of study) abd/pelvis CT Radiology: Final report received, EMP read indepedently, See rad report (Cholelithiasis and choledocholithiasis. Mild distention of gallbladder without pericholecystic fluid or gallbladder wall thickening.) PD MEDICAL DECISION MAKING - ED course Complexity details: reviewed results, re-evaluated patient, considered differential, d/w patient ED course: The patient was worked up with labs, EKG, and chest x-ray initially. She was treated symptomatically with IV fluids, Zofran, and a small dose of Dilaudid. Her vital signs were normal with the exception of slightly elevated blood pressure. Laboratory studies showed LFTs elevated across the board with mild lipase elevation. CT scan was performed as we did not have ultrasound available at on this night, and showed mildly distended gallbladder without wall thickening or pericholecystic fluid. Stones were noted in the gallbladder and a stone was also noted in common bile duct. I spoke with Dr. Godoy, our on- call surgeon, about this and he stated that the patient would benefit from having an ERCP before she has her gallbladder surgically removed. However, he did not feel that either 1 needed to be emergently done tonight. He recommended the patient be discharged to see her primary doctor and referred for ERCP after which patient may follow-up with surgery and discuss having her gallbladder removed electively. I have spoken at length with the patient about this and she is very agreeable and would like to go home she is feeling much much better now. She at this point stated to me that she was actually already aware she had gallstones and in fact had been diagnosed several years ago when she was having attacks of biliary colic at that time. The patient has continued to have an occasional attack of biliary colic but these always passed on their own. 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 We have discussed that she always has the potential to develop cholecystitis and if she experiences severe pain that is unremitting, especially if associated with fever, jaundice, or intractable vomiting, then she should return to the emergency department. Departure - Departure Disposition: 01 Home, Self Care Clinical Impression: Choledocholithiasis Cholelithiasis Qualifiers: Cholelithiasis location: gallbladder and bile duct Cholecystitis presence: w ithout cholecystitis Biliary obstruction: with biliary obstruction Qualified Code(s): K80.71 - Calculus of gallbladder and bile duct without cholecystitis with obstruction Condition: Stable Instructions: ED Gallstone W Biliary Colic Comments: You have been demonstrated to still have gallstones and your liver and pancreatic enzymes are somewhat elevated. Because of this, your case has been discussed with Dr. Godoy, who has recommended that you see your primary doct or soon as possible to have an ERCP ordered and be referred to a surgeon who can talk to you further about having your gallbladder removed. Right now, Dr. Godoy does not feel that your gallbladder needs emergent removal, nor does he feel that ERCP needs to be done emergently, but can be ordered as an outpatient. As we do not offer ERCP at [facility], your doctor will need to order this through one of the other [facility] that do offer this test. If you find that you are pain comes back severely and does not go away on its own, or if you develop fevers and jaundice, you should return to the emergency department. Otherwise, please eat a low-fat diet that will be less stimulating to your gallbladder until you can get your gallbladder removed.
--- NOTE | 2021-12-09 00:44 | XRAY Report ---
PROCEDURE: Chest 1 View X-Ray INDICATIONS: chest pain TECHNIQUE: One view of the chest was acquired. COMPARISON: 03/25/2018. FINDINGS: Surgical changes and devices: None. Lungs and pleura: No pleural effusions or pneumothorax. Lungs are clear. Mediastinum: Mediastinal contours appear unchanged. Heart size is enlarged. Bones and chest wall: No suspicious bony lesions. Overlying soft tissues appear unremarkable. IMPRESSION: 1. No acute cardiopulmonary disease. Reviewed by: Bartolome Graves MD on 12/09/2021 12:43 AM PDT Approved by: Bartolome Graves MD on 12/09/2021 12:43 AM PDT Station ID: [id number]
[2021-12-09 01:19] LABS: ALBUMIN 4.1 g/dL (3.2-5.5); ALBUMIN/GLOBULIN RATIO 1.1 (1.0-2.2); BILIRUBIN,TOTAL 2.4 mg/dL (0.2-1.0); CALCIUM 9.7 mg/dL (8.5-10.3); CREATININE 1.1 mg/dL (0.4-1.0); TOTAL PROTEIN 7.7 g/dL (6.7-8.2)
[2021-12-09 01:26] LABS: PT - PROTHROMBIN TIME 11.5 secs (9.9-12.6)
[2021-12-09 01:34] LABS: BASOPHILS % (AUTO) 0.6 %; EOSINOPHILS % (AUTO) 0.2 %; HCT - HEMATOCRIT 37.5 % (37.0-47.0); HGB - HEMOGLOBIN 12.4 g/dL (12.0-16.0); LYMPHOCYTES # (AUTO) 0.3 10^3/uL (1.5-3.5); LYMPHOCYTES % (AUTO) 5.6 %; MEAN CORPUSCULAR HGB CONC 33.1 g/dL (32.0-36.0); MEAN CORPUSCULAR VOLUME 93.8 fL (81.0-99.0); MONOCYTES # (AUTO) 0.3 10^3/uL (0.0-1.0); MONOCYTES % (AUTO) 4.9 %; NEUTROPHILS # (AUTO) 4.7 10^3/uL (1.5-6.6); NEUTROPHILS % (AUTO) 88.1 %; PLT - PLATELET COUNT 256 10^3/uL (130-450); RED CELL DISTRIBUTION WIDTH 12.1 % (12.0-15.0); WHITE BLOOD COUNT 5.3 x10^3/uL (4.8-10.8)
[2021-12-09 02:33] LABS: B. PARAPERTUSSIS- RESP PCR PAN NOT DETECTED; B. PERTUSSIS- RESP PCR PANEL NOT DETECTED; C. PNEUMONIAE- RESP PCR PANEL NOT DETECTED; CORONAVIRUS 229E-RESP PCR NOT DETECTED; CORONAVIRUS HKU1-RESP PCR NOT DETECTED; CORONAVIRUS NL63-RESP PCR NOT DETECTED; CORONAVIRUS OC43-RESP PCR NOT DETECTED; HUMAN METAPNEUMOVIRUS NOT DETECTED; INFLUENZA A- RESP PCR PANEL NOT DETECTED; INFLUENZA B - RESP PCR PANEL NOT DETECTED; M. PNEUMONIAE- RESP PCR PANEL NOT DETECTED; PARAINFLUENZA VIRUS 1 NOT DETECTED; PARAINFLUENZA VIRUS 2 NOT DETECTED; PARAINFLUENZA VIRUS 3 NOT DETECTED; PARAINFLUENZA VIRUS 4 NOT DETECTED; RHINOVIRUS/ENTEROVIRUS NOT DETECTED; RSV- RESP PCR PANEL NOT DETECTED; SARS-CoV-2 -RESP PCR PANEL NOT DETECTED
[2021-12-09] MEDS ORDERED: PIPERACILLIN/TAZOBACTAM 3.375 GM in SODIUM CHLORIDE 0.9% MINIBAG 100 ML IV STA (04:45)
[2021-12-09 05:27] VITALS: BP 123/68
--- NOTE | 2021-12-09 08:28 | CT Report ---
PROCEDURE: Abdomen/Pelvis W INDICATIONS: epigastric pain, elevated LFTs and lipase CONTRAST: IV CONTRAST: Optiray 320 ml: 100 PO CONTRAST: *NO PO CONTRAST TECHNIQUE: After the administration of intravenous contrast, 5 mm thick sections acquired from the diaphragms to the symphysis. 5 mm thick coronal and sagittal reformats were acquired. For radiation dose reducti on, the following was used: automated exposure control, adjustment of mA and/or kV according to syed ent size. COMPARISON: None. FINDINGS: Image quality: Excellent. ABDOMEN: Lung bases: Suspected basal atelectasis/scarring versus component of aspiration. Calcified granuloma. Cardiomegaly. Coronary artery calcifications. There is a suspected aneurysm arising from the left ve ntricle apex. Solid organs: Liver is unremarkable. There are gallstones. Choledocholithiasis with mild to moderate ly dilated biliary tree. Spleen is unremarkable. Mild pancreatic fatty atrophy and trace peripancreat ic stranding. There is a duodenal diverticulum adjacent to the pancreatic head. Adrenals are unremark able. Kidneys are unremarkable. Peritoneum and bowel: Patulous distal esophagus. No bowel obstruction. Colonic diverticula. No ascite s. Nodes and vessels: No pathologic adenopathy. No aortic aneurysm. Atherosclerotic calcifications are p resent. Miscellaneous: Tiny fat-containing midline hernia. PELVIS: Genitourinary: Bladder wall thickness is normal. Miscellaneous: No inguinal hernias or adenopathy. Bones: No suspicious bony lesions. No vertebral body compression fractures. IMPRESSION: Choledocholithiasis and cholelithiasis. Mild to moderately dilated biliary tree. Correla te with ultrasound as needed if there is additional concern for cholecystitis. Mild superimposed delmer pancreatic fat stranding with reported history of elevated lipase is compatible with pancreatitis. Inferolateral and apical myocardium thinning with luminal outpouching suspicious for left ventricle a neurysm, probably related to coronary artery disease which is partially visualized. Consider correlat ion with echocardiogram and if needed referral for cardiac MRI. These findings are in addition to the preliminary report generated overnight. Reviewed by: Lobito Levin MD on 12/09/2021 8:27 AM PDT Approved by: Lobito Levin MD on 12/09/2021 8:27 AM PDT Station ID: [id number]
--- NOTE | 2021-12-09 11:32 | ED Physician Documentation ---
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 I contacted the patient via telephone at 11:32 AM. She states that this is a known issue for her. She just had a recent echocardiogram and is having a virtual appointment with her doctor in about 10 minutes today. She states that this has been present since 2018. This document was made in part using voice recognition software. While efforts are made to proofread this document, sound alike and grammatical errors may occur.
== END 2021-12-09 05:25 | disposition home or self-care (01) ==
LOC: EDUNIT# → ED 23:50
DX: K80.70 Calculus of gallbladder and bile duct without cholecystitis without obstruction (principal); K80.50 Calculus of bile duct without cholangitis or cholecystitis without obstruction; Z87.891 Personal history of nicotine dependence; Z20.822 Contact with and (suspected) exposure to COVID-19
CPT/HCPCS: 36415; 71045; 74177; 80053; 83690; 84484; 85025; 85610; 87633; 93005; 96361; 96374; 96375; 99284; 99285; J1170; Q9967

== ENCOUNTER 2021-12-13 09:37 | Emergency (ER) | payer MEDICARE ==
[2021-12-13 09:53] VITALS: BP 139/71
== END 2021-12-13 10:13 | disposition left against medical advice (07) ==
LOC: ED 09:37
DX: Z53.21 Procedure and treatment not carried out due to patient leaving prior to being seen by health care provider (principal)
CPT/HCPCS: 80053; 83690; 85025

== ENCOUNTER 2023-12-24 21:42 | Emergency (ER) | payer MEDICARE ==
--- NOTE | 2023-12-24 21:51 | ED Physician Documentation ---
PD HPI CHEST PAIN - Stated complaint Stated Complaint: CHEST PX - History obtained from History obtained from: Patient - History of Present Illness Timing - onset: How many hours ago (1), Today (onset at home at rest of severe chest pressur/pain. Immediately here to ER with her spouse. No nausea. 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 : Frequency HEENT: None Psych: None Musculoskeletal: Osteoarthritis Derm: None - Past Surgical History Past Surgical History: Yes General: Appendectomy /OUTDOOR EDUCATION TEACHER: Tubal ligation HEENT: Cataracts, Tonsil/Adenoidectomy - Present Medications Home Medications: Ambulatory Orders Medication Instructions Recorded Confirmed Metformin HCl 500 mg PO DAILY 05/13/14 11/16/21 Atorvastatin Calcium 80 mg PO QPM 01/18/18 11/16/21 Losartan Potassium 25 mg PO DAILY 01/18/18 11/16/21 Furosemide [Lasix] 40 mg PO BIDDIURETIC #120 tablet 01/20/18 11/16/21 Metoprolol Succinate [Toprol Xl] 50 mg PO BID #60 tablet 01/20/18 11/16/21 Ascorbic Acid [Vitamin C] 500 mg PO DAILY 09/28/21 11/16/21 Aspirin [Aspirin EC] 81 mg PO DAILY 09/28/21 11/16/21 Cholecalciferol [Vitamin D3] 2,000 unit PO DAILY 09/28/21 11/16/21 Glimepiride 1 mg PO DAILY 09/28/21 11/16/21 Prasugrel HCl [Effient] 10 mg PO DAILY 09/28/21 11/16/21 - Allergies Allergies/Adverse Reactions: Allergies Allergy/AdvReac Type Severity Reaction Status Date / Time adhesive tape AdvReac Mild Rash Verified 12/24/23 21:56 JAN Inhibitors AdvReac cough Verified 12/24/23 21:56 NSAIDS (Non-Steroidal AdvReac Unknown Verified 12/24/23 21:56 Anti-Inflamma - Social History Does the pt smoke?: No Smoking Status: Former smoker (quit > 25 years ago) Does the pt drink ETOH?: No Does the pt have substance abuse?: No - Immunizations Immunizations are current?: Yes - POLST Patient has POLST: No PD ED PE NORMAL - Vitals Vital signs reviewed: Yes - General General: Alert and oriented X 3, Well developed/nourished, Other (appears in discomfort with chest pain. Alert and conversant. ) - Cardiac Cardiac: RRR, No murmur - Respiratory Respiratory: No respiratory distress, Clear bilaterally - Derm Derm: Normal color, Warm and dry - Extremities Extremities: No edema, No calf tenderness / cord - Neuro Neuro: Alert and oriented X 3, No motor deficit, No sensory deficit Results - Vitals Vitals: Vital Signs - 24 hr 12/24/23 12/24/23 21:54 21:55 Temperature 36.3 C L Heart Rate 70 74 Respiratory 16 19 Rate Blood Pressure 120/82 H 140/61 H O2 Saturation 94 97 Oxygen O2 Source Room air - EKG (time done) 21:50 EKG releavant findings:: EKG personally interpreted by author of this note. Relevant findings are: Rate: Rate (enter#) (67) Rhythm: NSR [place]: Normal Intervals: Normal SD QRS: Normal Ischemia: ST elevation c/w ischemia (inferolateral leads, with some reciporcal changes in right leads. ) - Labs Labs: Laboratory Tests 12/24/23 22:02 WBC 6.0 RBC 4.81 Hgb 14.4 Hct 44.4 MCV 92.3 MCH 29.9 MCHC 32.4 RDW 11.9 L Plt Count 254 MPV 11.2 H Neut # (Auto) 2.3 Lymph # (Auto) 2.4 [place] # (Auto) 1.1 H Eos # (Auto) 0.2 Baso # (Auto) 0.0 Absolute Nucleated RBC 0.00 Nucleated RBC % 0.0 - Rads (name of study) chest xray Relevant Findings:: EMP independent interpretation of test (enlarged heart, mild congestion. No PTX nor infiltreates. AICD in place. ) PD Medical Decision Making - ED course Complexity details: reviewed results ( with clear STEMI inferolateral leads. corresponds to her symptoms. ), considered differential (Patient with history of coronary disease with prior CA and stents in 29 teen I believe she said. Has not had any anginal type symptoms. Recent Cardiology visit with decreaesd EF, and had AICD placed. 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 June, EM physician, who reviewed ECG and accepts ER transfer. He will contact Interventional Cardiology. CXR enlarged heart, AICD in place. no PTX/etc.) Reviewed Lab Results: Labs pending. - Critical Care Time(min): 35 Time Includes: Direct patient care, Document care, Coordinate care, Medical consult Procedures excluded from critical care time: EKG Departure - Departure Disposition: 02 Transfer Acute Care Hosp Clinical Impression: STEMI (ST elevation myocardial infarction), Chest pain Condition: Stable Record reviewed to determine appropriate education?: Yes
[2023-12-24 22:09] LABS: BASOPHILS % (AUTO) 0.7 %; EOSINOPHILS # (AUTO) 0.2 10^3/uL (0.0-0.7); EOSINOPHILS % (AUTO) 3.7 %; HCT - HEMATOCRIT 44.4 % (37.0-47.0); HGB - HEMOGLOBIN 14.4 g/dL (12.0-16.0); LYMPHOCYTES # (AUTO) 2.4 10^3/uL (1.5-3.5); LYMPHOCYTES % (AUTO) 39.2 %; MEAN CORPUSCULAR HEMOGLOBIN 29.9 pg (27.0-31.0); MEAN CORPUSCULAR HGB CONC 32.4 g/dL (32.0-36.0); MEAN CORPUSCULAR VOLUME 92.3 fL (81.0-99.0); MEAN PLATELET VOLUME 11.2 fL (7.9-10.8); MONOCYTES # (AUTO) 1.1 10^3/uL (0.0-1.0); MONOCYTES % (AUTO) 17.7 %; NEUTROPHILS # (AUTO) 2.3 10^3/uL (1.5-6.6); NEUTROPHILS % (AUTO) 38.5 %; PLT - PLATELET COUNT 254 10^3/uL (130-450); RED BLOOD COUNT 4.81 10^6/uL (4.20-5.40); RED CELL DISTRIBUTION WIDTH 11.9 % (12.0-15.0)
[2023-12-24] MEDS: ASPIRIN CHEW 81 MG TABLET PO STA (22:14)
[2023-12-24] MEDS: CLOPIDOGREL 300 MG TABLET PO STA (22:14)
[2023-12-24] MEDS: MORPHINE 2 MG/ML CARPUJECT IVP STA (22:15)
[2023-12-24 22:21] LABS: PARTIAL THROMBOPLASTIN TIME 24.4 secs (24.9-33.3)
[2023-12-24] MEDS: HEPARIN 25000UNITS/500ML (D5W) 25,000 UNIT/500 ML BAG IV SCH (22:21)
[2023-12-24 22:26] LABS: PT - PROTHROMBIN TIME 10.8 secs (9.9-12.6)
[2023-12-24 22:30] LABS: TROPONIN I HIGH SENSITIVITY 14.4 ng/L (2.3-14.8)
[2023-12-24 22:31] LABS: ALBUMIN 4.2 g/dL (3.2-5.5); ALBUMIN/GLOBULIN RATIO 1.5 (1.0-2.2); BILIRUBIN,TOTAL 0.6 mg/dL (0.2-1.0); CALCIUM 9.8 mg/dL (8.5-10.3); CREATININE 1.8 mg/dL (0.6-1.3); POTASSIUM 4.5 mmol/L (3.5-4.5)
[2023-12-24 22:40] VITALS: BP 138/60; O2SAT 98
--- NOTE | 2023-12-24 22:47 | XRAY Report ---
PROCEDURE: Chest 1V INDICATIONS: chest pain TECHNIQUE: One view of the chest was acquired. COMPARISON: 12/08/2021 FINDINGS: Surgical changes and devices: Left chest wall pulse regular with electrode leads. Left axillary clip s. Lungs and pleura: Mild perihilar opacities. Low lung volumes. No drainable effusions Mediastinum: Borderline cardiomegaly unchanged Bones and chest wall: Degenerative findings IMPRESSION: Mild perihilar opacities could represent atypical infection or edema. There are low lung volumes on single view radiograph, limiting evaluation. Reviewed by: Lobito Levin MD on 12/24/2023 10:46 PM PDT Approved by: Lobito Levin MD on 12/24/2023 10:46 PM PDT Station ID: [id number]
== END 2023-12-24 22:35 | disposition short-term general hospital (02) ==
LOC: ED 21:42
DX: I21.3 ST elevation (STEMI) myocardial infarction of unspecified site (principal); I11.0 Hypertensive heart disease with heart failure; I50.9 Heart failure, unspecified; I25.10 Atherosclerotic heart disease of native coronary artery without angina pectoris; E11.9 Type 2 diabetes mellitus without complications; E78.00 Pure hypercholesterolemia, unspecified; Z79.84 Long term (current) use of oral hypoglycemic drugs; Z79.899 Other long term (current) drug therapy
CPT/HCPCS: 36415; 71045; 80053; 83690; 83735; 84484; 85025; 85610; 85730; 93005; 96374; 96375; 99291; A9270